=== PATIENT | male | born 1935 | race Caucasian/White ===

== ENCOUNTER → 2021-02-09 | Outpatient (CLI) | payer MEDICARE, BC ==
--- NOTE | 2021-02-09 14:58 | RAD ---
EXAM: Lumbar spine CT without contrast. HISTORY: Pain. TECHNIQUE: Computed tomographic images of the lumbar spine were obtained without contrast. Multiplana r reformatting was performed. *One or more of the following individualized dose reduction techniques were utilized for this examina tion: 1. Automated exposure control. 2. Adjustment of the mA and/or kV according to patient size. 3. Use of iterative reconstruction technique. COMPARISON: None. FINDINGS: There is lumbar scoliosis. There is grade 1 anterolisthesis of L5 on S1, measuring 4 mm. Th ere are associated pars interarticularis defects at this level. There is 3 mm retrolisthesis of L2 on L3 and 2 mm retrolisthesis of L1 on L2. There is multilevel endplate remodeling, predominantly at L2 -L3. There is associated disc space narrowing, osteophytosis and Schmorl's node formation at this lev el. There are few additional small endplate Schmorl's nodes. There is slight calcification within the disc space at T11-T12 and L5-S1. There is no suspicious osseous lesion. There is no fracture. There is partial visualization of a 11 mm nodule at the right lung base. There is a right renal parapelvic cyst. There is hyperdensity within the gallbladder likely due to a stone rather than vicarious excret ion of contrast. There is colonic diverticulosis. There is heavily calcified atherosclerotic plaque i nvolving the aorta and aortic branch vessels. There is no aneurysm. The sacroiliac joints are intact. At T11-T12, there is a left paracentral to lateral recess disc protrusion superimposed on endplate re modeling. There is minimal bilateral facet arthropathy. There is no stenosis. At T12-L1, there is mild endplate remodeling. There is no stenosis. At L1-L2, there is a disc bulge and endplate remodeling. There is mild bilateral facet arthropathy. T here is retrolisthesis. There is mild central canal stenosis. At L2-L3, there is a left foraminal to lateral disc osteophyte complex superimposed on a left lateral predominant disc bulge and endplate osteophytosis. There is retrolisthesis. There is mild right and moderate to severe left foraminal stenosis. There is mild central canal stenosis. At L3-L4, there is a posterior central disc protrusion superimposed on a disc bulge and endplate david deling. There is mild central canal stenosis. At L4-L5, there is a left extra foraminal to lateral disc protrusion superimposed on a disc bulge and endplate remodeling. There is mild stenosis involving the lateral left neural foramen with abutment of the exiting left L4 nerve root. There is mild central canal stenosis. At L5-S1, there is a disc bulge with endplate remodeling. There are bilateral pars defects with grade 1 anterolisthesis. There is no stenosis. IMPRESSION: 1. 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 This results in mild central canal stenosis at L1-L2, mild right and moderate to severe left f oraminal and mild central canal stenosis at L2-L3, mild central canal stenosis at L3-L4, and mild lat eral left neural foraminal stenosis with abutment the exiting left L4 nerve root and mild central can al stenosis at L4-L5. 2. Grade 1 anterolisthesis with pars interarticularis defects at L5-S1. There is additional mild list hesis at the aforementioned levels and there is lumbar scoliosis. 3. 11 mm right basilar pleural-based nodule. This may be due to pleural parenchymal scarring. [facility] ed chest CT can be performed for characterization. 4. Colonic diverticulosis. Electronically signed by: Yocasta Echeverria MD (02/09/2021 2:55 PM) [id number]
== END ==
LOC: CT 14:06
PROVIDERS: ATTEND Psychiatry & Neurology Neurology
DX: M43.17 Spondylolisthesis, lumbosacral region (principal); M41.86 Other forms of scoliosis, lumbar region; G82.20 Paraplegia, unspecified; R91.1 Solitary pulmonary nodule; K57.30 Diverticulosis of large intestine without perforation or abscess without bleeding
CPT/HCPCS: 72131

== ENCOUNTER 2021-05-07 08:25 | Inpatient (IN) | payer MEDICARE, BC ==
[~2021-05-07] VITALS: Ht 177.8 cm; Wt 74.0 kg
--- NOTE | 2021-05-07 09:01 | PHYS DOC ---
Past History Additional Past Medical Histor: NEMESIO'S DISEASE; PERICARDITIS Past Surgical History: Appendectomy General Adult EDM: Chief Complaint: SHORTNESS OF BREATH HPI: HPI: 85-year-old male presents with shortness of breath. The patient had vomiting Tuesday through Tuesday of this week. He has not had any vomiting last night or this morning. He has not been eating. Today, he has increased respiratory effort and feels a bit short of breath. The patient and his daughter believe this started overnight. Patient denies chest pain or diaphoresis. He is feeling more generalized weakness at this time. Denies any bleeding. He is fully vaccinated against COVID-19. No fever or chills at home. Review of Systems: Review of Systems: Constitutional: Denies fever or chills. Weakness. Eyes: Denies change in visual acuity HENT: Denies nasal congestion or sore throat Respiratory: Intermittent cough with shortness of breath Cardiovascular: Denies chest pain or edema GI: nausea, vomiting. Denies abdominal pain, bloody stools or diarrhea : Denies dysuria Musculoskeletal: Denies back pain or joint pain Integument: Denies rash Neurologic: Denies headache, focal weakness or sensory changes Endocrine: Denies polyuria or polydipsia Lymphatic: Denies swollen glands Psychiatric: Denies depression or anxiety Allergies: Allergies: Allergies Coded Allergies Type Severity Reaction Last Updated Verified No Known Drug Allergies 05/07/21 No Physical Exam: PE: Constitutional: Well developed, well nourished, no acute distress, non-toxic appearance. [] HENT: Normocephalic, atraumatic, bilateral external ears normal, oropharynx moist, no oral exudates, nose normal. [] Eyes: PERRLA, EOMI, conjunctiva normal, no discharge. [] Neck: Normal range of motion, no tenderness, supple, no stridor. [] Cardiovascular: Heart rate regular rhythm, no murmur [] Lungs & Thorax: Bilateral breath sounds clear to auscultation, 20-28 respirations a minute [] Abdomen: Bowel sounds normal, soft, no tenderness, no masses, no pulsatile masses. [] Skin: Warm, dry, no erythema, no rash. [] Back: No tenderness, no CVA tenderness. [] Extremities: No tenderness, no cyanosis, no clubbing, ROM intact, no edema. [] Neurologic: Alert and oriented X 3, normal motor function, normal sensory function, no focal deficits noted. [] Psychologic: Affect normal, judgement normal, mood normal. [] Current Patient Data: Vital Signs: Vital Signs Date Time Temp Pulse Resp B/P (MAP) Pulse Ox O2 Delivery O2 Flow Rate FiO2 05/07/21 08:42 97.4 70 24 158/60 99 Room Air EKG: EKG: Sinus rhythm rate 79, normal axis, no obvious ST elevation or depression. [] Radiology/Procedures: Radiology/Procedures: [] Impressions: EXAM: CHEST 1 VIEW History: Shortness of breath COMPARISON: None available. TECHNIQUE: Single portable radiograph of the chest FINDINGS: The cardiac silhouette is unremarkable. Mild bibasilar lung atelectasis or infiltrates. The costophrenic sulci are clear and well demarcated. Small calcified granuloma identified in the right lung base. IMPRESSION: Mild bibasilar lung atelectasis or infiltrates. Electronically signed by: Roberto Carlos Pacheco MD (05/07/2021 9:37 AM) [id number] DICTATED AND SIGNED BY: ROBERTO CARLOS PACHECO MD DATE: 05/07/21 0933 CC: AURA FRANK DO; CHICA HINKLE MD ~MTH0 0 Heart Score: C/O Chest Pain: No Risk Factors: Risk Factors: DM, Current or recent (<one month) smoker, HTN, HLP, family history of CAD, obesity. Risk Scores: Score 0 - 3: 2.5% MACE over next 6 weeks - Discharge Home Score 4 - 6: 20.3% MACE over next 6 weeks - Admit for Clinical Observation Score 7 - 10: 72.7% MACE over next 6 weeks - Early Invasive Strategies Course & Med Decision Making: Course & Med Decision Making Pertinent Labs and Imaging studies reviewed. (See chart for details) The patient's labs are unremarkable except for creatinine 1.6. I have no previous for comparison. His orthostatic evaluation was positive. We will give him a liter of normal saline. Dr. Hinkle came and saw the patient in the emergency room and would like him to be admitted. I will admit the patient to his service. The chest x-ray is suggestive of atelectasis or bilateral infiltrates. I will treat him with Rocephin and azithromycin. His rapid Covid was negative but his PCR is pending. I am suspicious this could be COVID-19 despite his vaccination. [] Dragon Disclaimer: Dragjoaquina Disclaimer: This electronic medical record was generated, in whole or in part, using a voice recognition dictation system. Departure Departure: Impression: Primary Impression: Suspected 2019 novel coronavirus infection Additional Impressions: Elevated serum creatinine Bilateral pneumonia Qualified Codes: J18.9 - Pneumonia, unspecified organism Disposition: ADMITTED INPATIENT Admitting Physician: Chica Hinkle Condition: STABLE Referrals: CHICA HINKLE MD (PCP) AURA FRANK DO May 07, 2021 09:01
[2021-05-07 09:33] LABS: BASO % 1 % (0-3); EOS # 0.3 x10^3/uL (0.0-0.7); EOS % 4 % (0-3); HEMATOCRIT 38.3 % (39.0-53.0); HEMOGLOBIN 12.9 g/dL (13.0-17.5); LYMPH # 2.3 x10^3/uL (1.0-4.8); LYMPH % 28 % (24-48); MEAN CORPUSCULAR HEMOGLOBIN 33 pg (25-35); MEAN CORPUSCULAR HGB CONC 34 g/dL (31-37); MEAN CORPUSCULAR VOLUME 99 fL (79-100); MONO # 0.7 x10^3/uL (0.0-1.1); MONO % 8 % (0-9); NEUT # 4.8 x10^3uL (1.8-7.7); NEUT % 59 % (31-73); PLATELET COUNT 267 x10^3/uL (140-400); RED BLOOD COUNT 3.89 x10^6/uL (4.30-5.70); RED CELL DISTRIBUTION WIDTH 13.3 % (11.5-14.5); WHITE BLOOD COUNT 8.1 x10^3/uL (4.0-11.0)
[2021-05-07 09:38] LABS: CREATININE 1.6 mg/dL (0.7-1.3); GFR 41.3; POTASSIUM 4.4 mmol/L (3.5-5.1)
--- NOTE | 2021-05-07 09:39 | RAD ---
EXAM: CHEST 1 VIEW History: Shortness of breath COMPARISON: None available. TECHNIQUE: Single portable radiograph of the chest FINDINGS: The cardiac silhouette is unremarkable. Mild bibasilar lung atelectasis or infiltrates. Th e costophrenic sulci are clear and well demarcated. Small calcified granuloma identified in the right lung base. IMPRESSION: Mild bibasilar lung atelectasis or infiltrates. Electronically signed by: Roberto Carlos Hayden MD (05/07/2021 9:37 AM) [id number]
[2021-05-07 09:44] LABS: ALBUMIN 3.5 g/dL (3.4-5.0); ALBUMIN/GLOBULIN RATIO 1.4 (1.0-1.7); TOTAL BILIRUBIN 0.6 mg/dL (0.2-1.0)
[2021-05-07 10:32] LABS: C REACTIVE PROTEIN < 0.5 mg/L (0-3.3)
[2021-05-07] MEDS ORDERED: IV NORMAL SALINE 1,000ML 1,000 ML IV ONE (10:45)
[2021-05-07] MEDS ORDERED: IV NORMAL SALINE 50ML 50 ML ONE (10:59)
[2021-05-07] MEDS ORDERED: cefTRIAXone SODIUM 1 GM VIAL ONE (10:59)
[2021-05-07] MEDS ORDERED: IV NORMAL SALINE 250ML 250 ML ONE (10:59)
[2021-05-07] MEDS ORDERED: AZITHROMYCIN 500 MG VIAL. IV ONE (10:59)
[2021-05-07] MEDS ORDERED: ONDANSETRON PF 4 MG/2 ML VIAL. IVP PRN (11:00)
[2021-05-07] MEDS ORDERED: AZITHROMYCIN 500 MG in IV NORMAL SALINE 250ML 250 ML IV ONE (11:00)
[2021-05-07] MEDS ORDERED: ACETAMINOPHEN 325 MG TABLET PO PRN (11:00)
[2021-05-07 13:00] LABS: BACTERIA,URINE 0 /HPF (0-FEW); BILIRUBIN,URINE NEG (NEG); CLARITY,URINE CLEAR; COLOR,URINE YELLOW; GLUCOSE,URINE NEG (NEG); NITRITE,URINE NEG (NEG); SQUAMOUS EPITHELIAL CELL,UR FEW /LPF
--- NOTE | 2021-05-07 16:07 | EKG ---
[address] [address] Test Date: 2021-05-07 Test Time: 08:44:10 Pat Name: AURORA GARNER Department: Room: Gender: M Inseam Leveler: : [id number] Requested By: AURA FRANK Order Number: [id number] Reading MD: Measurements Intervals Jacobson Rate: 79 P: VT: QRS: -23 QRSD: 92 T: 40 QT: 376 QTc: 432 Interpretive Statements ATRIAL FLUTTER LEFTWARD AXIS ST & T ABNORMALITY, CONSIDER INFERIOR ISCHEMIA OR LEFT VENTRICULAR STRAIN ABNORMAL ECG RI6.02 No previous ECG available for comparison
[2021-05-07 16:25] VITALS: BP 166/75
[2021-05-07 16:38] VITALS: BP 127/71
[2021-05-07] MEDS ORDERED: ATORVASTATIN CA80 MG PO (18:05)
[2021-05-07] MEDS ORDERED: GABA-586 PO (18:05)
--- NOTE | 2021-05-07 19:17 | HP ---
ADMIT DATE: 05/07/2021 HISTORY OF PRESENT ILLNESS: The patient has history of Arena's disease, pericarditis, came in, apparently fell out of bed. He has been having problems with generalized weakness, shortness of breath and just cannot mobilize very well overall. He is markedly diaphoretic at times, but just general weakness, coughing. Chest x-ray in the ER showed pneumonic process and was admitted for pneumonia because of his age, his generalized weakness and his inability to mobilize at home with a risk to himself. PAST MEDICAL HISTORY: Pericarditis, Arena's disease, urinary tract infections, and hyperglycemia. FAMILY HISTORY: Unremarkable. ALLERGIES: No known drug allergies. SOCIAL HISTORY: The patient has a history of smoking in the past. Denies alcohol or drug use. REVIEW OF SYSTEMS: The patient otherwise, outside of generalized weakness, has neuropathy type pain in his legs, but other than that, the patient is resting fairly comfortably. Denies chest pain per se, but does have that shortness of breath. PHYSICAL EXAMINATION: GENERAL: The patient on exam otherwise is a very pleasant gentleman, very weak appearing. VITAL SIGNS: Blood pressure 166/75, respiratory rate 20, pulse 88, afebrile. The patient otherwise 97 on room air. HEENT: Head is atraumatic, normocephalic. Eyes: PERRLA without jaundice. The mouth and throat were normal. NECK: Supple, no JVD or thyromegaly. LUNGS: Diminished throughout, poor movement of air, basically in the bases. CARDIOVASCULAR: Regular sinus rhythm, S1, S2, without murmur, rub, thrill, or extra heart sound. ABDOMEN: Soft, nontender, no rebound or guarding. Positive bowel sounds, no hepatosplenomegaly noted. EXTREMITIES: No clubbing, cyanosis, nor edema. LABORATORY DATA: Hemoglobin 12, hematocrit 38, white count 8. Sodium and potassium are 137 and 4.4. BUN 17 and creatinine 1.6, glucose 130. C-reactive protein stable. TSH normal. Total protein low at 6. BNP of 270s. SARS negative. PLAN: The patient will be admitted for further evaluation and treatment of his pneumonia, community acquired; generalized weakness. FALGUNI/REAGAN/KALYN DR: FALGUNI/jorge TID: [id number]
[2021-05-07 19:52] VITALS: BP 157/68
[2021-05-07] MEDS: GABAPENTIN 300 MG CAPSULE. PO SCH (20:25)
[2021-05-07 23:34] VITALS: BP 145/66
[2021-05-08] MEDS: GABAPENTIN 300 MG CAPSULE. PO SCH ×3 (07:45→20:17)
[2021-05-08] MEDS: AZITHROMYCIN 250 MG TABLET. PO SCH (07:45)
[2021-05-08] MEDS ORDERED: ATORVASTATIN CALCIUM 20 MG TABLET PO SCH (09:00)
[2021-05-08 10:07] VITALS: BP 132/68
[2021-05-08] MEDS: LACTOBACILLUS RHAMNOSUS GG 1 CAPSULE. PO SCH ×2 (10:33→20:17)
[2021-05-08] MEDS: rOPINIRole 0.25 MG TABLET. PO SCH (10:33)
[2021-05-08 14:49] VITALS: BP 127/70
[2021-05-08 19:10] VITALS: BP 139/73
[2021-05-08 22:49] VITALS: BP 124/67
--- NOTE | 2021-05-08 23:06 | PN ---
SUBJECTIVE: The patient in with pneumonia. He says he is feeling a little bit better. OBJECTIVE: VITAL SIGNS: Blood pressure 127/70, respiratory rate 18, pulse on the average of about 74, afebrile, 96 on room air. GENERAL: The patient is resting fairly comfortably. LUNGS: Diminished, poor movement of air. CARDIOVASCULAR: Regular sinus rhythm. ABDOMEN: Soft, nontender, no rebound or guarding. Positive bowel sounds. No hepatosplenomegaly was noted. EXTREMITIES: No clubbing, cyanosis, nor edema. NEUROLOGIC: The patient is alert and oriented. Continue with PT, OT and make thorough evaluation on him and make further evaluation from the physical and occupational therapist. IMPRESSION: Pneumonia, generalized weakness, and gait disturbance. PLAN: We will go ahead and continue with IV antibiotic therapy and physical and occupational therapy and make further adjustments accordingly. Also, pneumonia, type 2 diabetes, and chronic kidney disease stage IIIA. LOAN DR: Silvia TID: [id number]
[2021-05-09 05:38] VITALS: BP 151/71
[2021-05-09 05:56] LABS: BASO % 0 % (0-3); EOS # 0.8 x10^3/uL (0.0-0.7); EOS % 8 % (0-3); HEMATOCRIT 35.6 % (39.0-53.0); HEMOGLOBIN 12.2 g/dL (13.0-17.5); LYMPH # 3.9 x10^3/uL (1.0-4.8); LYMPH % 40 % (24-48); MEAN CORPUSCULAR HEMOGLOBIN 34 pg (25-35); MEAN CORPUSCULAR HGB CONC 34 g/dL (31-37); MEAN CORPUSCULAR VOLUME 99 fL (79-100); MONO # 0.8 x10^3/uL (0.0-1.1); MONO % 8 % (0-9); NEUT # 4.3 x10^3uL (1.8-7.7); NEUT % 44 % (31-73); PLATELET COUNT 256 x10^3/uL (140-400); RED CELL DISTRIBUTION WIDTH 13.2 % (11.5-14.5); WHITE BLOOD COUNT 9.7 x10^3/uL (4.0-11.0)
[2021-05-09 05:59] LABS: CALCIUM 8.2 mg/dL (8.5-10.1); CREATININE 1.6 mg/dL (0.7-1.3); GFR 41.3; POTASSIUM 4.3 mmol/L (3.5-5.1)
[2021-05-09] MEDS: LACTOBACILLUS RHAMNOSUS GG 1 CAPSULE. PO SCH (08:22)
[2021-05-09] MEDS: AZITHROMYCIN 250 MG TABLET. PO SCH (08:22)
[2021-05-09] MEDS: GABAPENTIN 300 MG CAPSULE. PO SCH (08:23)
[2021-05-09] MEDS: rOPINIRole 0.25 MG TABLET. PO SCH (08:23)
[2021-05-09] MEDS ORDERED: AZIT250T6 PO (08:44)
[2021-05-09] MEDS ORDERED: ROPI0.254 PO (08:44)
[2021-05-09] MEDS ORDERED: ATORVASTATIN CALCIUM 20 MG TABLET PO SCH (09:00)
--- NOTE | 2021-05-14 15:01 | DS ---
DATE OF DISCHARGE: 05/14/2021 HOSPITAL COURSE: An 85-year-old gentleman with a history of [place]'s disease, pericarditis, came in, apparently fell out of bed. The patient has been having problems with generalized weakness, markedly diaphoretic at times, just general weakness, unable to get his balance. The patient was noted in the Emergency Room to have a pneumonia. He was admitted with IV antibiotic therapy, aggressive pulmonary toilet. Hemoglobin slightly low at 12.2. Chemistries did show a slightly low iron of 61. Sugar was good. BUN and creatinine 20 and 1.6. The patient continued to make good progress during the rest of his hospitalization. He was taken off his Lipitor. SARS was negative. He made good progress and was discharged home. IMPRESSION: Pneumonia, unknown etiology, community-acquired, generalized weakness, lethargy, dyspnea, chronic kidney disease stage IIIB. The patient will be discharged. See MRAD and have him follow up as an outpatient and make further evaluation on him as indicated. CARLA DR: Silvia TID: [id number]
== END 2021-05-09 12:08 | disposition home or self-care (01) | DRG 178 ==
LOC: ER 08:28 → 1 SOUTH 10:48
PROVIDERS: ADMIT Family Medicine; ATTEND Family Medicine
DX: J15.6 Pneumonia due to other Gram-negative bacteria (principal); J98.11 Atelectasis; J15.9 Unspecified bacterial pneumonia; L11.1 Transient acantholytic dermatosis [Grover]; E11.22 Type 2 diabetes mellitus with diabetic chronic kidney disease; Z20.822 Contact with and (suspected) exposure to COVID-19; Z87.891 Personal history of nicotine dependence; Z90.49 Acquired absence of other specified parts of digestive tract; N18.32 Chronic kidney disease, stage 3b
CPT/HCPCS: 36415; 71045; 80048; 80053; 81001; 83540; 83550; 83880; 84443; 84484; 85025; 86140; 87426; 93005; 96361; 96365; 96375; J0456; J0696; J2405; J7050; U0003; 97530; 99285-25; J7030

== ENCOUNTER 2021-05-16 09:41 | Emergency (ER) | payer MEDICARE, BC ==
[~2021-05-16] VITALS: Ht 177.8 cm; Wt 78.5 kg
[~2021-05-16 09:41] MED LIST: ATORVASTATIN CA80 MG PO; AZIT250T6 PO; GABA-586 PO; ROPI0.254 PO
--- NOTE | 2021-05-16 10:03 | PHYS DOC ---
Past History Additional Past Medical Histor: JOSÉ MANUEL'S DISEASE; PERICARDITIS Past Surgical History: Appendectomy Alcohol Use: None General Adult EDM: Chief Complaint: MECHANICAL FALL HPI: HPI: 85 yo M PMH josé manuel's disease, pericarditis with discharge from hospital 2 days ago for CAP, presents to the ed with c/o headache and left wrist pain after patient actually fell down 13 steps at home, patient drove himself here. Patient denies any loss of consciousness. Is not on anticoagulants. Was not under the influence of any alcohol or drugs. Cannot recall his last tetanus. Denies any preceding symptoms including dizziness, lightheadedness, faintness, near syncope, chest pain, dyspnea, hemoptysis, leg swelling or neurologic deficits. Review of Systems: Review of Systems: Constitutional: Denies fever or chills Eyes: Denies change in visual acuity HENT: Denies nasal congestion or sore throat Respiratory: Denies cough or shortness of breath Cardiovascular: Denies chest pain or edema GI: Denies abdominal pain, nausea, vomiting, bloody stools or diarrhea : Denies saddle anesthesia or incontinence Musculoskeletal: Denies back pain or joint pain Integument: Denies rash or diaphoresis Neurologic: Denies neck pain, focal weakness or sensory changes Endocrine: Denies polyuria or polydipsia Lymphatic: Denies swollen glands Psychiatric: Denies depression or anxiety Allergies: Allergies: Allergies Coded Allergies Type Severity Reaction Last Updated Verified No Known Drug Allergies 05/07/21 No Physical Exam: PE: Constitutional: Well developed, well nourished, no acute distress, non-toxic appearance. HENT: Large superficial skin avulsion over top of the head approximately 6 x 6 cm, no septal hematoma, no bleeding oral mucous membranes Eyes: PERRLA, EOMI, conjunctiva normal, no discharge. Neck: Normal range of motion, supple, no midline neck pain Cardiovascular: S1/2 present, regular rhythm Lungs & Thorax: Speaking in full sentences, bilateral equal chest rise, no tachypnea or increased work of breathing Abdomen: soft, no tenderness, Skin: Warm, dry, Back: No midline spinal step-offs or tenderness, reports tenderness palpation over left CVA Extremities: Equal radial pulses, left distal wrist deformity, small abrasion over right second MCP joint Neurologic: Alert and oriented X 3, normal motor function, normal sensory function, no focal deficits noted, cautious but steady gait Psychologic: Affect normal, judgement normal, mood normal. [] Current Patient Data: Vital Signs: Vital Signs Date Time Temp Pulse Resp B/P (MAP) Pulse Ox O2 Delivery O2 Flow Rate FiO2 05/16/21 09:41 97.7 67 16 140/66 (90) 97 Room Air EKG: EKG: [] Radiology/Procedures: Radiology/Procedures: IMAGING REPORT Signed PATIENT: AURORA GARNER ACCOUNT: [id number] : 1935 LOCATION: ER AGE: 85 SEX: M EXAM STATUS: REG ER ORD. PHYSICIAN: ANGIE ARREOLA DO REASON: fall down 13 steps PROCEDURE: CT HEAD AND CERVICAL SPINE WO CT MAXILLOFACIAL WITHOUT CONTRAST, CT HEAD AND C-SPINE WO dated 05/16/2021 10:47 AM Indication:Reason: fall down 13 steps / Spl. Instructions: / History: Comparison: No comparison is available. Technique: Noncontrast images were performed. Sagittal and coronal reconstructions of the facial bones and cervical spine were obtained. One or more of the following individualized dose reduction techniques were utilized for this examination: 1. Automated exposure control 2. Adjustment of the mA and/or kV according to patient size 3. Use of iterative reconstruction technique Findings: CT head: There is no apparent intracranial hemorrhage or abnormal extra-axial fluid collection. Low-attenuation in the cerebral white matter likely relates to chronic small vessel ischemic injury. No other area of abnormal density is seen. The ventricles and basilar cisterns are normally positioned. Bone windows show no apparent fracture of the skull or abnormal mastoid opacification. CT FACIAL BONES: No facial fracture is seen. The orbital floors appear intact. The nasal septum is deviated some to the right. No fluid is seen in the sinuses. CT cervical spine: Alignment is normal. There is no apparent loss of vertebral body height or prevertebral soft tissue swelling. No fracture line is seen. There is prominent disc narrowing at C3-4, C4-5, C5-6 and C6-7. Evaluation of the soft tissue components of the canal is limited without intrathecal contrast. No destructive process is seen. IMPRESSION: CT head: No acute abnormality. CT FACIAL BONES: No evidence of fracture or other acute abnormality. CT cervical spine: Degenerative changes. No acute abnormality. Electronically signed by: Kirk Brasher Jr., MD (05/16/2021 11:42 AM) [id number] DICTATED AND SIGNED BY: KIRK BRASHER Jr, MD DATE: 05/16/21 1133 CC: CHICA HINKLE MD; ANGIE ARREOLA DO ~MTH0 0 IMAGING REPORT Signed PATIENT: AURORA GARNER ACCOUNT: [id number] : 1935 LOCATION: ER AGE: 85 SEX: M EXAM STATUS: REG ER ORD. PHYSICIAN: ANGIE ARREOLA DO REASON: fall down 13 steps PROCEDURE: CT CHEST ABD PELVIS W/CONTRAST CT CHEST+ABD+PELVIS W dated 05/16/2021 10:37 AM Indication:Reason: fall down 13 steps / Spl. Instructions: omni 300 50ml iv only, oked by radiologist, kgm 1048 / History: Comparison: No comparison is available. Technique: CT images were performed through the chest abdomen and pelvis using an infusion of 50 mL Omnipaque 300. One or more of the following individualized dose reduction techniques were utilized for this examination: 1. Automated exposure control 2. Adjustment of the mA and/or kV according to patient size 3. Use of iterative reconstruction technique Findings: CT chest: There is some dependent density in the lungs. This is probably mostly atelectasis, although mild fibrosis is possible. There is no evidence of significant lung contusion. No pneumothorax or pleural effusion is seen. There is suggestion of a nodule at the right lung base just above the diaphragm. This measures about 10 mm across. There may have mildly irregular margins, although the surrounding density makes evaluation difficult. The central airways show no obstruction. The thoracic aorta is normal in caliber without evidence of injury. No mediastinal fluid or hemorrhage is seen. Bone windows show no fracture. CT abdomen and pelvis: The liver and spleen are homogeneous in density and normal in configuration. There is no evidence of laceration or contusion. There is dependent density in the gallbladder consistent with sludge or small stones. Both kidneys enhance with contrast. There is no evidence of parenchymal injury. No mass or obstruction is seen. There is a parapelvic cyst on the right. The adrenal glands and pancreas show no abnormality. No free fluid is seen in the abdomen. There is a small fat-containing umbilical hernia. Images through the pelvis show no apparent abnormality of the bladder. The distal ureters are mildly dilated without apparent cause for obstruction. No free fluid is seen in the pelvis. Bone windows show no acute abnormality. IMPRESSION: Indeterminate right lower lobe lung nodule. Follow-up CT in 3 months would be useful. No acute traumatic abnormality in the chest, abdomen or pelvis. Electronically signed by: Kirk Brasher Jr., MD (05/16/2021 11:59 AM) [id number] DICTATED AND SIGNED BY: KIRK BRASHER Jr, MD DATE: 05/16/21 1144 CC: CHICA HINKLE MD; ANGIE ARREOLA DO ~MTH0 0 IMAGING REPORT Signed PATIENT: AURORA GARNER ACCOUNT: [id number] : 1935 LOCATION: ER AGE: 85 SEX: M EXAM STATUS: REG ER ORD. PHYSICIAN: ANGIE ARREOLA DO REASON: left wrist pain, right 2nd digit pain PROCEDURE: HAND BILAT 3V XR WRIST 3V, XR HAND 3 VIEWS Clinical indications: Reason: left wrist pain, right 2nd digit pain Three-view right wrist study: No acute fracture or dislocation or osteolytic process is evident. Scaphoid bone is intact. 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 Three-view right hand study: No acute fracture or dislocation or lytic process is evident. Degenerative osteoarthritis of the interphalangeal joints and the first metacarpal phalangeal joint is evident. Three-view left wrist study: Scaphoid bone is intact. There is an impacted comminuted fracture of the distal left radial metaphysis and epiphysis. There is intra-articular extension. There is distraction of the articular surface of 2 mm. There is a positive ulnar variance. There is anterior angulation of the apex of the fracture with posterior displacement of the radial epiphysis with respect to the metaphysis resulting in dorsal displacement of the radial carpal articulation and dorsal angulation of radial carpal articulation. 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 No lytic process is seen. Three-view left hand study: Separate bone fragment of the lateral proximal epiphysis of the first proximal phalanx is seen. 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 There is a nondisplaced acute-appearing fracture of the lateral proximal corner of the first distal phalanx. No dislocation or lytic process is apparent. IMPRESSION: Acute fracture of the distal left radius and the left first distal phalanx. Electronically signed by: Tracy Poole MD (05/16/2021 12:17 PM) [id number] DICTATED AND SIGNED BY: TRACY POOLE MD DATE: 05/16/21 1203 CC: CHICA HINKLE MD; ANGIE ARREOLA DO ~MTH0 0 Patient informed of findings. Splint applied by RN. The splint is checked by RN, with appropriate stabilization of the injury. Distal capillary refill normal and distal neurologic function intact Heart Score: C/O Chest Pain: No Risk Factors: Risk Factors: DM, Current or recent (<one month) smoker, HTN, HLP, family history of CAD, obesity. Risk Scores: Score 0 - 3: 2.5% MACE over next 6 weeks - Discharge Home Score 4 - 6: 20.3% MACE over next 6 weeks - Admit for Clinical Observation Score 7 - 10: 72.7% MACE over next 6 weeks - Early Invasive Strategies Course & Med Decision Making: Course & Med Decision Making Pertinent Labs and Imaging studies reviewed. (See chart for details) Concern for closed left distal radius fracture, left distal phalanx fracture, scalp skin avulsion, renal insufficiency and macrocytic anemia. Tetanus was updated in emergency department. Patient with steady gait. Will discharge home with strict ED return precautions were given for repeat head injury, confusion, nausea, vomiting or neurologic deficits. Encouraged urgent outpatient follow-up with PMD in 1 to 2 days for reevaluation. Life-threatening processes were considered but are low suspicion at this time, given history, physical exam and ED workup. Pt was educated on all prescription medications and adverse effects. All patient's questions were answered and pt was stable at time of discharge. Life/limb-threatening differential includes but is not limited to, intracranial hemorrhage, diffuse axonal injury, spinal cord syndrome, unstable cervical fracture or SCIWORA, fractures or joint dislocations, neurovascular injuries, organ injury or laceration, pneumothorax, pneumoperitoneum, pericardial tamponad e, unstable pelvic fracture, compartment syndrome, flail chest or respiratory distress, burn injury or asphyxiation I have spoken with the patient and/or caregivers. I explained the patient's condition, diagnoses and treatment plan based on the information available to me at this time. I have answered the patient and/or caregiver's questions and addressed any concerns. The patient and/or caregivers have a good understanding of patient's diagnosis, condition and treatment plan as can be expected at this point. Vital signs have been stable. Patient's condition is stable and appropriate for discharge from the emergency department. Patient will pursue further outpatient evaluation with primary care physician or other designated or consulting physician as outlined in the discharge instructions. The patient and/or caregivers are agreeable to this plan of care and follow-up instructions have been explained in detail. The patient and/or caregivers have received these instructions in written form and have expressed an understanding of the discharge instructions. The patient and/or caregivers are aware that any significant change of condition or worsening of symptoms should prompt immediate return to this or the closest emergency department or call to 911. Martha Disclaimer: Martha Disclaimer: This electronic medical record was generated, in whole or in part, using a voice recognition dictation system. Departure Departure: Impression: Primary Impression: Avulsion of scalp Additional Impressions: Need for Tdap vaccination Left radial fracture CKD (chronic kidney disease) Fracture of distal phalanx of left thumb Disposition: 01 HOME / SELF CARE / HOMELESS Condition: STABLE Referrals: CHICA HINKLE MD (PCP) Follow up with your pcp in 1-2 days or [facility] [phone] OR [facility] Hinkle [phone] Patient Instructions: Cast or Splint Care, Fall Prevention and Home Safety, Finger Fracture (Phalangeal)-SportsMed, Radius Fracture with Rehab-[facility], VIS, Tetanus, Diphtheria (Td); Tetanus, Diphtheria, Pertussis (Tdap) - CDC Additional Instructions: FOLLOW UP WITH ORTHOPEDICS: for definitive management of left distal radius fracture [facility] [address] [facility], [address] [address] EMERGENCY DEPARTMENT GENERAL DISCHARGE INSTRUCTIONS Thank you for coming to [facility] (ED) today and trusting us with you care. We trust that you had a positivie experience in our Emergency Department. If you wish to speak to the department management, you may call the director at [phone]. YOUR FOLLOW UP INSTRUCTIONS ARE FOLLOWS: 1. Do you have a private Doctor? If you do not have a private doctor, please ask for a resource list of physicians or clinics that may be able to assist you with follow up care. 2. The Emergency Physician has interpreted your x-rays. The X-Ray specialist w ill also review them. If there is a change in the findings, you will be notified in 48 hours when at all possible. 3. A lab test or culture has been done, your results will be reviewed and you will be notified if you need a change in treatment. ADDITIONAL INSTRUCTIONS AND INFORMATION: 1. Your care today has been supervised by a physician who is specially trained in emergency care. Many problems require more than one evaluation for a complete diagnosis and treatment. We recommend that you schedule your follow up appointment as recommended to ensure complete treatment of you illness or injury. If you are unable to obtain follow up care and continue to have a problem, or if your condition worsens, we recommend that you return to the ED. 2. We are not able to safely determine your condition over the phone nor are we able to give sound medical advice over the phone. For these safety reasons, if you call for medical advice we will ask you to come to the ED for further evaluation. 3. If you have any questions regarding these discharge instructions please call the ED at [phone]. SAFETY INFORMATION: In the interest of safety, wellness, and injury prevention; we encourage you to wear your sealbelt, if you smoke; quite smoking, and we encourage family to use a protective helmet for bicycling and other sporting events that present an increased risk for head injury. IF YOUR SYMPTOMS WORSEN OR NEW SYMPTOMS DEVELOP, OR YOU HAVE CONCERNS ABOUT YOUR CONDITION; OR IF YOUR CONDITION WORSENS WHILE YOU ARE WAITING FOR YOUR FOLLOW UP APPOINTMENT; EITHER CONTACT YOUR PRIMARY CARE DOCTOR, THE PHYSICIAN WHOSE NAME AND NUMBER YOU WERE GIVEN, OR RETURN TO THE ED IMMEDIATELY. Scripts Neomycn/Baci Zn/Pmyx Bs/Pramox (Triple Antibioti-Pain Rlf Oint) 28 Gm Oint...g. 28 GM TP TID PRN for PAIN, #1 MISC Prov: ANGIE ARREOLA DO 05/16/21 ANGIE ARREOLA DO May 16, 2021 10:03
[2021-05-16] MEDS ORDERED: ACETAMINOPHEN 500 MG TABLET PO ONE (10:15)
[2021-05-16] MEDS ORDERED: IOHEXOL 300 MG/ML 75 ML VIAL. IV ONE (10:15)
[2021-05-16] MEDS ORDERED: DIPH,PERTUSS(ACELL),TET VAC/PF 0.5 ML SYRINGE. VAX IM ONE (10:15)
[2021-05-16 10:30] LABS: BASO % 0 % (0-3); EOS # 0.4 x10^3/uL (0.0-0.7); EOS % 4 % (0-3); HEMATOCRIT 35.5 % (39.0-53.0); HEMOGLOBIN 11.9 g/dL (13.0-17.5); LYMPH % 18 % (24-48); MEAN CORPUSCULAR HEMOGLOBIN 33 pg (25-35); MEAN CORPUSCULAR HGB CONC 34 g/dL (31-37); MEAN CORPUSCULAR VOLUME 100 fL (79-100); MONO # 0.5 x10^3/uL (0.0-1.1); MONO % 5 % (0-9); NEUT # 8.3 x10^3uL (1.8-7.7); NEUT % 74 % (31-73); PLATELET COUNT 256 x10^3/uL (140-400); RED BLOOD COUNT 3.57 x10^6/uL (4.30-5.70); RED CELL DISTRIBUTION WIDTH 13.4 % (11.5-14.5); WHITE BLOOD COUNT 11.2 x10^3/uL (4.0-11.0)
[2021-05-16 10:34] LABS: CALCIUM 8.8 mg/dL (8.5-10.1); CREATININE 1.6 mg/dL (0.7-1.3); GFR 41.3; POTASSIUM 4.1 mmol/L (3.5-5.1)
[2021-05-16 10:36] LABS: ALBUMIN 3.3 g/dL (3.4-5.0); ALBUMIN/GLOBULIN RATIO 1.4 (1.0-1.7); TOTAL BILIRUBIN 0.4 mg/dL (0.2-1.0); TOTAL PROTEIN 5.6 g/dL (6.4-8.2)
[2021-05-16] MEDS ORDERED: NEOMY/BACITR/POLYMYXIN OINT PACKET. TP ONE (10:45)
--- NOTE | 2021-05-16 11:45 | RAD ---
CT MAXILLOFACIAL WITHOUT CONTRAST, CT HEAD AND C-SPINE WO dated 05/16/2021 10:47 AM Indication:Reason: fall down 13 steps / Spl. Instructions: / History: Comparison: No comparison is available. Technique: Noncontrast images were performed. Sagittal and coronal reconstructions of the facial bone s and cervical spine were obtained. One or more of the following individualized dose reduction techniques were utilized for this examinat ion: 1. Automated exposure control 2. Adjustment of the mA and/or kV according to patient size 3. Use of iterative reconstruction technique Findings: CT head: There is no apparent intracranial hemorrhage or abnormal extra-axial fluid collection. Low-a ttenuation in the cerebral white matter likely relates to chronic small vessel ischemic injury. No ot her area of abnormal density is seen. The ventricles and basilar cisterns are normally positioned. Arben ne windows show no apparent fracture of the skull or abnormal mastoid opacification. CT FACIAL BONES: No facial fracture is seen. The orbital floors appear intact. The nasal septum is de viated some to the right. No fluid is seen in the sinuses. CT cervical spine: Alignment is normal. There is no apparent loss of vertebral body height or prevert ebral soft tissue swelling. No fracture line is seen. There is prominent disc narrowing at C3-4, C4-5 , C5-6 and C6-7. Evaluation of the soft tissue components of the canal is limited without intrathecal contrast. No destructive process is seen. IMPRESSION: CT head: No acute abnormality. CT FACIAL BONES: No evidence of fracture or other acute abnormality. CT cervical spine: Degenerative changes. No acute abnormality. Electronically signed by: Andrea Brasher Jr., MD (05/16/2021 11:42 AM) [id number]
[2021-05-16 11:54] VITALS: BP 160/80
--- NOTE | 2021-05-16 12:01 | RAD ---
CT CHEST+ABD+PELVIS W dated 05/16/2021 10:37 AM Indication:Reason: fall down 13 steps / Spl. Instructions: omni 300 50ml iv only, oked by radiologist , kgcecilia 1048 / History: Comparison: No comparison is available. Technique: CT images were performed through the chest abdomen and pelvis using an infusion of 50 mL O mnipaque 300. One or more of the following individualized dose reduction techniques were utilized for this examinat ion: 1. Automated exposure control 2. Adjustment of the mA and/or kV according to patient size 3. Use of iterative reconstruction technique Findings: CT chest: There is some dependent density in the lungs. This is probably mostly atelectasis, although mild fibrosis is possible. There is no evidence of significant lung contusion. No pneumothorax or pl eural effusion is seen. There is suggestion of a nodule at the right lung base just above the diaphra gm. This measures about 10 mm across. There may have mildly irregular margins, although the surroundi ng density makes evaluation difficult. The central airways show no obstruction. The thoracic aorta is normal in caliber without evidence of injury. No mediastinal fluid or hemorrhage is seen. Bone windo ws show no fracture. CT abdomen and pelvis: The liver and spleen are homogeneous in density and normal in configuration. T here is no evidence of laceration or contusion. There is dependent density in the gallbladder consist ent with sludge or small stones. Both kidneys enhance with contrast. There is no evidence of parenchy mal injury. No mass or obstruction is seen. There is a parapelvic cyst on the right. The adrenal glan ds and pancreas show no abnormality. No free fluid is seen in the abdomen. There is a small fat-conta ining umbilical hernia. Images through the pelvis show no apparent abnormality of the bladder. The distal ureters are mildly dilated without apparent cause for obstruction. No free fluid is seen in the pelvis. Bone windows erik w no acute abnormality. IMPRESSION: Indeterminate right lower lobe lung nodule. Follow-up CT in 3 months would be useful. No acute traumatic abnormality in the chest, abdomen or pelvis. Electronically signed by: Andrea Brasher Jr., MD (05/16/2021 11:59 AM) [id number]
--- NOTE | 2021-05-16 12:20 | RAD ---
XR WRIST 3V, XR HAND 3 VIEWS Clinical indications: Reason: left wrist pain, right 2nd digit pain Three-view right wrist study: No acute fracture or dislocation or osteolytic process is evident. Scap hoid bone is intact. There is severe primary degenerative osteoarthritis of the first carpal metacarp al joint. Three-view right hand study: No acute fracture or dislocation or lytic process is evident. Degenerati ve osteoarthritis of the interphalangeal joints and the first metacarpal phalangeal joint is evident. Three-view left wrist study: Scaphoid bone is intact. There is an impacted comminuted fracture of the distal left radial metaphysis and epiphysis. There is intra-articular extension. There is distractio n of the articular surface of 2 mm. There is a positive ulnar variance. There is anterior angulation of the apex of the fracture with posterior displacement of the radial epiphysis with respect to the m etaphysis resulting in dorsal displacement of the radial carpal articulation and dorsal angulation of radial carpal articulation. 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 No lytic process is seen. Three-view left hand study: Separate bone fragment of the lateral proximal epiphysis of the first pro ximal phalanx is seen. The edges appear sclerotic and therefore, this represents an old nonunited fra cture. There is a nondisplaced acute-appearing fracture of the lateral proximal corner of the first d istal phalanx. No dislocation or lytic process is apparent. IMPRESSION: Acute fracture of the distal left radius and the left first distal phalanx. Electronically signed by: Marquis Poole MD (05/16/2021 12:17 PM) [id number]
[2021-05-16] MEDS ORDERED: NEOM28OI48 TP (12:51)
--- NOTE | 2021-05-16 13:45 | RAD ---
CT STUDY OF THE THORACIC SPINE WITHOUT CONTRAST CT STUDY OF THE LUMBAR SPINE WITHOUT CONTRAST Clinical indications: Fell down 13 steps. Back pain. TECHNIQUE: Noncontrast helical CT scanning of the thoracic and lumbar spine was performed. Multiplana r 2-D reconstructions were generated. PQRS compliance Statement One or more of the following individualized dose reduction techniques were utilized for this study: 1. Automated exposure control 2. Adjustment of the mA and/or kV according to patient size 3. Use of iterative reconstruction technique CT THORACIC SPINE: There is a mild compression deformity of the superior endplate of T5 of indetermin ate age. No other fracture or discitis or lytic process is evident. CT LUMBAR SPINE: No compression fracture or discitis or lytic process is evident. The transverse proc esses appear intact. There are grade 1 anterolisthesis of L5-S1 secondary to bilateral spondylolysis of L5. There is degenerative disc space narrowing and endplate spurring at L2-3. Mild spinal canal st enosis is seen at this level and at L3-4 and L4-5. Chest and abdomen and pelvis CT was reported earlier. IMPRESSION: Mild compression deformity of the superior endplate of T5 of indeterminate age. Clinical correlation is recommended. Otherwise no other fracture is evident. 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 Electronically signed by: Marquis Poole MD (05/16/2021 1:42 PM) [id number]
[2021-05-17] MEDS ORDERED: DOCU-109 PO (07:45)
[2021-05-25] MEDS ORDERED: MIDO5TAB4 PO (13:20)
[2021-05-25] MEDS ORDERED: AMLO-186 PO (13:20)
[2021-05-25] MEDS ORDERED: CALC200T23 PO (13:20)
== END 2021-05-16 13:28 | disposition home or self-care (01) ==
LOC: ER 09:41
DX: S62.522A Displaced fracture of distal phalanx of left thumb, initial encounter for closed fracture (principal); S08.0XXA Avulsion of scalp, initial encounter; S52.502A Unspecified fracture of the lower end of left radius, initial encounter for closed fracture; N18.9 Chronic kidney disease, unspecified; Z90.89 Acquired absence of other organs; W10.8XXA Fall (on) (from) other stairs and steps, initial encounter; Y93.89 Activity, other specified; Y92.89 Other specified places as the place of occurrence of the external cause; Y99.8 Other external cause status
CPT/HCPCS: 29125; 36415; 70450; 70486; 71260; 72125; 73110; 73130; 74177; 76376; 80053; 85025; 90471; 90715; 99285; Q9967

== ENCOUNTER 2021-05-17 05:08 | Emergency (ER) | payer MEDICARE, BC ==
[~2021-05-17] VITALS: Ht 177.8 cm; Wt 78.5 kg
[~2021-05-17 05:08] MED LIST changes: +NEOM28OI48 TP
[2021-05-17 05:25] VITALS: BP 152/50
--- NOTE | 2021-05-17 06:28 | PHYS DOC ---
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 Denies any repeat injury. No fall or head injury. Daughter is present in ED, (patient consents to his/her/their knowledge and involvement in pts' medical care), and has a bottle of 60 tablets of [place], 5/325 mg. Patient took 1 last night with minimal relief. Review of Systems: Review of Systems: Constitutional: Denies fever or chills Eyes: Denies change in visual acuity HENT: Denies nasal congestion or sore throat Respiratory: Denies cough or shortness of breath Cardiovascular: Denies chest pain or edema GI: Denies nausea or vomiting,bloody stools or diarrhea Musculoskeletal: Denies midline back pain or flank pain Integument: Denies rash or diaphoresis Neurologic: Denies headache, focal weakness or sensory changes Endocrine: Denies polyuria or polydipsia Lymphatic: Denies swollen glands Psychiatric: Denies depression or anxiety Current Medications: Current Meds: Current Medications Medications (Trade) Dose Ordered Sig/Paco Start Time Stop Time Status Last Admin Dose Admin Acetaminophen/ Hydrocodone Bitart (Lortab 7.5/325) 1 tab 1X ONCE 05/17/21 06:30 05/17/21 06:31 05/17/21 06:18 1 TAB Bupivacaine HCl (Sensorcaine Mpf 0.5%) 10 ml 1X ONCE 05/17/21 06:30 05/17/21 06:31 05/17/21 06:18 10 ML Allergies: Allergies: Allergies Coded Allergies Type Severity Reaction Last Updated Verified No Known Drug Allergies 05/07/21 No Physical Exam: PE: Constitutional: Well developed, well nourished, no acute distress, non-toxic appearance. HENT: Normocephalic, atraumatic, Eyes: EOMI, conjunctiva normal, no discharge. Neck: Normal range of motion, supple, Cardiovascular: S1/2 present, regular rhythm Lungs & Thorax: Speaking in full sentences, bilateral equal chest rise, no tachypnea or increased work of breathing Abdomen: soft, no tenderness, Skin: Warm, dry, no erythema, no rash. [] Back: No midline spinal step-offs or tenderness, no CVA tenderness. [] Extremities: bruising to left thumb, splint removed with significant pain relief, cap refill< 1 second, no cyanosis, median/radial/ulnar nerve sensory distribution intact, equal radial pulses bilaterally Neurologic: Alert and oriented X 3, normal motor function, normal sensory function, no focal deficits noted. [] Psychologic: Affect normal, judgement normal, mood normal. [] EKG: EKG: [] Radiology/Procedures: Radiology/Procedures: Patient and daughter informed of findings. Splint applied by RN. The splint is checked by self, with appropriate stabilization of the injury. Distal capillary refill normal and distal neurologic function intact [] Heart Score: C/O Chest Pain: No Risk Factors: Risk Factors: DM, Current or recent (<one month) smoker, HTN, HLP, family history of CAD, obesity. Risk Scores: Score 0 - 3: 2.5% MACE over next 6 weeks - Discharge Home Score 4 - 6: 20.3% MACE over next 6 weeks - Admit for Clinical Observation Score 7 - 10: 72.7% MACE over next 6 weeks - Early Invasive Strategies Course & Med Decision Making: Course & Med Decision Making Pertinent Labs and Imaging studies reviewed. (See chart for details) Concern for uncontrolled pain management of left distal wrist fracture, alignment improved with splinting. I do suspect splint might have been too tight around patient's thumb -will redo thumb spica splint and loosely wrap. Daughter will observe patient for the next few days. Patient was given very specific surgeons regarding [place] use and can take in addition with ibuprofen. Will discharge home with strict ED return precautions were given for severe pain, neurologic deficits or repeat injury. Encouraged urgent outpatient follow- up with PMD and Ortho on Tuesday. Life-threatening processes were considered but are low suspicion at this time, given history, physical exam and ED workup. Pt was educated on all prescription medications and adverse effects. All patient's questions were answered and pt was stable at time of discharge. Life/limb-threatening differential includes but is not limited to, trauma (fracture, dislocation, laceration, compartment syndrome, tendon or ligament injury), neurovascular injury or deficitcva/tia, infection (osteomyelitis, abscess, cellulitis, septic arthritis, necrotizing fasciitis), deep vein thrombosis, renal/cardiac/liver disease, medication adverse effect, lymphedema/anasarca, vascular insufficiency or malignancy, I have spoken with the patient and/or caregivers. I explained the patient's condition, diagnoses and treatment plan based on the information available to me at this time. I have answered the patient and/or caregiver's questions and addressed any concerns. The patient and/or caregivers have a good understanding of patient's diagnosis, condition and treatment plan as can be expected at this point. Vital signs have been stable. Patient's condition is stable and appropriate for discharge from the emergency department. Patient will pursue further outpatient evaluation with primary care physician or other designated or consulting physician as outlined in the discharge instr uctions. The patient and/or caregivers are agreeable to this plan of care and follow-up instructions have been explained in detail. The patient and/or caregivers have received these instructions in written form and have expressed an understanding of the discharge instructions. The patient and/or caregivers are aware that any significant change of condition or worsening of symptoms should prompt immediate return to this or the closest emergency department or call to 911. [employer] Disclaimer: [email or web address] Disclaimer: This electronic medical record was generated, in whole or in part, using a voice recognition dictation system. Departure Departure: Impression: Primary Impression: Encounter for pain management Additional Impression: Distal radius fracture, left Disposition: 01 HOME / SELF CARE / HOMELESS Condition: STABLE Referrals: CHICA HINKLE MD (PCP) Patient Instructions: Cast or Splint Care, RICE - Routine Care for Injuries Additional Instructions: YOU CAN TAKE NORCO 5/325 MG, 1-1.5 TABLETS EVERY 6 HOURS NEEDED FOR PAIN IN ADDITION TO MOTRIN 400MG EVERY 6 HOURS WITH FOOD Scripts Docusate Sodium (COLACE) 100 Mg Capsule 1 CAP PO BID for CONSTIPATION for 7 Days, #14 CAP 0 Refills Prov: ANGIE ARREOLA DO 05/17/21 ANGIE ARREOLA DO May 17, 2021 06:28
[2021-05-17] MEDS ORDERED: BUPIVACAINE MPF 0.5% 30 ML VIAL. IJ ONE (06:30)
[2021-05-17] MEDS ORDERED: HYDROcodone/APAP 7.5/325MG 1 TAB TABLET PO ONE (06:30)
--- NOTE | 2021-05-17 07:15 | RAD ---
XR FOREARM_LEFT 2 VIEWS, XR LT WRIST 3VIEWS, XR HAND_LEFT 3 VIEWS dated 05/17/2021 6:28 AM. History: Reason: pain / Spl. Instructions: / History: Comparison: Study of the previous day. Findings: Left wrist 3 views: Views of the left wrist again show the impacted comminuted fracture of the distal radius with involvement of the distal articular surface. There appears to be slightly less dorsal an gulation of the distal articular surface compared to the prior study. Degenerative changes are again seen at the first carpometacarpal joint. No other change is noted. Left hand 3 views: The radius fracture is again seen. There is a possible fracture involving the prox imal and of the first distal phalanx toward the ulnar side. No other fracture is seen. Prominent dege nerative changes are again seen at the first carpometacarpal joint. Left forearm 2 views: Distal radius fracture is again demonstrated. No proximal radius or ulna fractu re is seen. Impression: 1. Impacted distal radius fracture with apparent reduced angulation compared to the prior exam. Possible fracture of distal phalanx of the thumb. No other acute findings. Electronically signed by: Andrea Brasher Jr., MD (05/17/2021 7:12 AM) [id number]
[2021-05-17] MEDS ORDERED: IBUPROFEN 600 MG TABLET. PO ONE (07:35)
[2021-05-17] MEDS ORDERED: DOCU-109 PO (07:45)
[2021-05-25] MEDS ORDERED: MIDO5TAB4 PO (13:20)
[2021-05-25] MEDS ORDERED: AMLO-186 PO (13:20)
[2021-05-25] MEDS ORDERED: CALC200T23 PO (13:20)
== END 2021-05-17 08:14 | disposition home or self-care (01) ==
LOC: ER 05:08
DX: S52.502D Unspecified fracture of the lower end of left radius, subsequent encounter for closed fracture with routine healing (principal); X58.XXXD Exposure to other specified factors, subsequent encounter
CPT/HCPCS: 29125; 73090; 73110; 73130; 99284; J3490

== ENCOUNTER 2021-05-22 10:11 | Inpatient (IN) | payer MEDICARE, BC ==
[~2021-05-22] VITALS: Ht 177.8 cm; Wt 73.0 kg
[~2021-05-22 10:11] MED LIST changes: +DOCU-109 PO
--- NOTE | 2021-05-22 10:33 | PHYS DOC ---
Past History Additional Past Medical Histor: josé manuel's dx, pericarditis Past Surgical History: Appendectomy Alcohol Use: None General Adult EDM: Chief Complaint: WEAKNESS/GENERALIZED HPI: HPI: Patient is an 85-year-old male who presents to the ER via EMS for complaints of generalized fatigue since he fell 1 week ago. Patient states he was walking on steps and fell 1 week ago. He was evaluated by Dr. Ingram's office when he had imaging of his left forearm, wrist, hand, CT of head neck, CT of abdomen and pelvis, CT maxillofacial bones, and CT of thoracic and lumbar spine. Patient was noted to have an impacted distal radius fracture and possible thumb fracture. Patient presents to the ER with a splint in place. Along with the generalized fatigue patient is reporting that he just cannot catch his breath or take a full breath. He denies any new cough or chest pain, fevers. Patient denies any new trauma. Patient ambulates with a cane. He states that he has been taking diazepam and hydrocodone at home. Patient is alert and oriented x4 and his vital signs are stable. Review of Systems: Review of Systems: 14 body systems of the review of systems have been reviewed. See HPI for pertinent positive and negative responses, otherwise all other systems are negative, nonpertinent or noncontributory Allergies: Allergies: Allergies Coded Allergies Type Severity Reaction Last Updated Verified No Known Drug Allergies 05/17/21 No Physical Exam: PE: Constitutional: Well developed, well nourished, no acute distress, non-toxic appearance. [] HENT: Normocephalic, old abrasion noted to top of head with scabbing noted, bilateral external ears normal, oropharynx moist, no oral exudates, nose normal. [] Eyes: PERRL, EOMI, conjunctiva normal, no discharge. [] Neck: Normal range of motion, no tenderness, supple, no stridor. [] Cardiovascular:Heart rate regular rhythm, no murmur [] Lungs & Thorax: Bilateral breath sounds clear to auscultation [] Abdomen: Bowel sounds normal, soft, no tenderness, no masses, no pulsatile masses. [] Skin: Warm, dry, no erythema, no rash, ecchymosis in various stages noted to l. shoulder and upper arm, splint noted to l. forearm, bruising noted above splint and to thumb. . [] Back: L. posterior rib pain, no crepitis, no flail chest, no bony spinal tenderness Extremities: No tenderness, no cyanosis, no clubbing, ROM intact, no edema, L. arm: warm exremity, neurovascularly intact Neurologic: Alert and oriented X 3, normal motor function, normal sensory function, no focal deficits noted. [] Psychologic: Affect normal, judgement normal, mood normal. [] Current Patient Data: Labs: Laboratory Tests Test 05/22/21 10:50 05/22/21 11:05 White Blood Count 7.5 x10^3/uL Red Blood Count 3.46 x10^6/uL Hemoglobin 11.6 g/dL Hematocrit 34.4 % Mean Corpuscular Volume 99 fL Mean Corpuscular Hemoglobin 33 pg Mean Corpuscular Hemoglobin Concent 34 g/dL Red Cell Distribution Width 13.5 % Platelet Count 277 x10^3/uL Neutrophils (%) (Auto) 67 % Lymphocytes (%) (Auto) 22 % Monocytes (%) (Auto) 8 % Eosinophils (%) (Auto) 4 % Basophils (%) (Auto) 1 % Neutrophils # (Auto) 5.0 x10^3uL Lymphocytes # (Auto) 1.6 x10^3/uL Monocytes # (Auto) 0.6 x10^3/uL Eosinophils # (Auto) 0.3 x10^3/uL Basophils # (Auto) 0.0 x10^3/uL Sodium Level 138 mmol/L Potassium Level 4.3 mmol/L Chloride Level 99 mmol/L Carbon Dioxide Level 28 mmol/L Anion Gap 11 Blood Urea Nitrogen 27 mg/dL Creatinine 1.8 mg/dL Estimated GFR (Cockcroft-Gault) 36.0 BUN/Creatinine Ratio 15 Glucose Level 104 mg/dL Calcium Level 9.1 mg/dL Total Bilirubin 0.6 mg/dL Aspartate Amino Transf (AST/SGOT) 19 U/L Alanine Aminotransferase (ALT/SGPT) 21 U/L Alkaline Phosphatase 122 U/L Troponin I Quantitative < 0.017 ng/mL Total Protein 5.7 g/dL Albumin 3.1 g/dL Albumin/Globulin Ratio 1.2 SARS-CoV-2 Antigen (Rapid) Negative Current Medications Medications (Trade) Dose Ordered Sig/Paco Route PRN Reason Start Time Stop Time Status Last Admin Dose Admin Fentanyl Citrate (Fentanyl 2ml Vial) 50 mcg 1X ONCE IVP 05/22/21 11:30 05/22/21 11:31 DC 05/22/21 11:42 EKG: EKG: EKG performed by ER staff at 1054 shows sinus rhythm, no STEMI read by Dr. Lyman at 1136. [] Radiology/Procedures: Radiology/Procedures: PROCEDURE: SHOULDER 2+V LEFT AP Internal and external rotation views with Y-View of the left shoulder were performed along with AP and lateral views of the left humerus. Indication: Fall now with pain Comparison: None. No fracture, glenohumeral or AC joint subluxation. There is mild superior migration of the humeral head suggestive of rotator cuff injury. Electronically signed by: Wilberto Carrington MD (05/22/2021 10:52 AM) [id number] DICTATED AND SIGNED BY: WILBERTO CARRINGTON MD DATE: 05/22/211050 CC: CHICA HINKLE MD; EMERGENCY,DEPARTMENT; RAE GARCIA APRN ~MTH0 0 []PROCEDURE: CHEST AP ONLY Single AP view of the chest. Comparison: 05/07/2021. Indication: Weakness and shortness of air Findings: The heart is enlarged but stable. There is no pneumothorax or effusion. No air space or interstitial disease. Impression: 1. No acute cardiopulmonary process. Electronically signed by: Wilberto Carrington MD (05/22/2021 10:51 AM) [id number] DICTATED AND SIGNED BY: WILBERTO CARRINGTON MD DATE: 05/22/211050 CC: CHICA HINKLE MD; EMERGENCY,DEPARTMENT; RAE GARCIA APRN ~MTH0 0 Heart Score: C/O Chest Pain: No Risk Factors: Risk Factors: DM, Current or recent (<one month) smoker, HTN, HLP, family history of CAD, obesity. Risk Scores: Score 0 - 3: 2.5% MACE over next 6 weeks - Discharge Home Score 4 - 6: 20.3% MACE over next 6 weeks - Admit for Clinical Observation Score 7 - 10: 72.7% MACE over next 6 weeks - Early Invasive Strategies Course & Med Decision Making: Course & Med Decision Making Pertinent Labs and Imaging studies reviewed. (See chart for details) Patient is an 85-year-old male being seen in the ER for generalized fatigue and difficulty catching breath for 1 week since falling. Following injury patient did have imaging performed which showed a distal radius fracture. Patient has splint in place and is intact. Patient has bruising noted to his left shoulder and forearm, no imaging performed of these areas therefore x-ray imaging was performed. Due to patient's rib pain, chest x-ray was performed. Patient has already had a CT of his chest abdomen and pelvis. Patient denies any current head or neck pain. Patient states he has been taking diazepam and hydrocodone at home. Work-up in the ER consisted of blood work, urinalysis, EKG. imaging in the ER is negative for any acute findings. CBC unremarkable. Patient is noted to have slight elevation in BUN and creatinine that is consistent with his previous lab findings. I discussed patient's case with Dr. Ingram who agreed to admit the patient under his services for generalized weakness. I discussed patient's findings with him as well as treatment plan. Patient is agreeable at this time. Bridge orders placed. Care transferred at this time 1208. Martha Disclaimer: Martha Disclaimer: This electronic medical record was generated, in whole or in part, using a voice recognition dictation system. Departure Departure: Impression: Primary Impression: Generalized weakness Disposition: ADMITTED INPATIENT Admitting Physician: Chica Hinkle Condition: GOOD Referrals: CHICA HINKLE MD (PCP) RAE GARCIA AIRLINE PILOT/FIRST OFFICER May 22, 2021 10:33
--- NOTE | 2021-05-22 10:54 | RAD ---
Single AP view of the chest. Comparison: 05/07/2021. Indication: Weakness and shortness of air Findings: The heart is enlarged but stable. There is no pneumothorax or effusion. No air space or interstitial disease. Impression: 1. No acute cardiopulmonary process. Electronically signed by: Wilberto Carrington MD (05/22/2021 10:51 AM) [id number]
--- NOTE | 2021-05-22 10:55 | RAD ---
AP Internal and external rotation views with Y-View of the left shoulder were performed along with AP and lateral views of the left humerus. Indication: Fall now with pain Comparison: None. No fracture, glenohumeral or AC joint subluxation. There is mild superior migration of the humeral he ad suggestive of rotator cuff injury. Electronically signed by: Wilberto Carrington MD (05/22/2021 10:52 AM) [id number]
[2021-05-22 11:10] LABS: BASO % 1 % (0-3); EOS # 0.3 x10^3/uL (0.0-0.7); EOS % 4 % (0-3); HEMATOCRIT 34.4 % (39.0-53.0); HEMOGLOBIN 11.6 g/dL (13.0-17.5); LYMPH # 1.6 x10^3/uL (1.0-4.8); LYMPH % 22 % (24-48); MEAN CORPUSCULAR HEMOGLOBIN 33 pg (25-35); MEAN CORPUSCULAR HGB CONC 34 g/dL (31-37); MEAN CORPUSCULAR VOLUME 99 fL (79-100); MONO # 0.6 x10^3/uL (0.0-1.1); MONO % 8 % (0-9); NEUT % 67 % (31-73); PLATELET COUNT 277 x10^3/uL (140-400); RED BLOOD COUNT 3.46 x10^6/uL (4.30-5.70); RED CELL DISTRIBUTION WIDTH 13.5 % (11.5-14.5); WHITE BLOOD COUNT 7.5 x10^3/uL (4.0-11.0)
[2021-05-22 11:17] LABS: CALCIUM 9.1 mg/dL (8.5-10.1); CREATININE 1.8 mg/dL (0.7-1.3); POTASSIUM 4.3 mmol/L (3.5-5.1)
[2021-05-22 11:23] LABS: ALBUMIN 3.1 g/dL (3.4-5.0); ALBUMIN/GLOBULIN RATIO 1.2 (1.0-1.7); TOTAL BILIRUBIN 0.6 mg/dL (0.2-1.0); TOTAL PROTEIN 5.7 g/dL (6.4-8.2)
--- NOTE | 2021-05-22 11:49 | EKG ---
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
[2021-05-22] MEDS ORDERED: ONDANSETRON PF 4 MG/2 ML VIAL. IVP PRN (12:15)
[2021-05-22 14:54] VITALS: BP 177/96
[2021-05-22] MEDS ORDERED: GLYB5TAB3 PO (15:45)
[2021-05-22] MEDS ORDERED: ASPI81TA59 PO (15:45)
[2021-05-22] MEDS ORDERED: TRIA15CR2 TP (15:51)
[2021-05-22] MEDS ORDERED: BACITRACIN TP PRN (18:15)
[2021-05-22] MEDS ORDERED: POLYMYXIN B TP PRN (18:15)
[2021-05-22] MEDS ORDERED: NEOMYCIN TP PRN (18:15)
[2021-05-22] MEDS ORDERED: PRAMOXINE TP PRN (18:15)
[2021-05-22] MEDS ORDERED: [UNRECOGNIZED DRUG - OTHER] TP PRN (18:15)
[2021-05-22] MEDS ORDERED: amLODIPine BESYLATE 5 MG TABLET PO ONE (18:30)
[2021-05-22] MEDS ORDERED: TRIAMCINOLONE ACETONIDE 0.1% TOPICAL CREAM 15GM TUBE. TP PRN (19:00)
[2021-05-22 19:40] VITALS: BP 175/65
[2021-05-22] MEDS: DOCUSATE SODIUM 100 MG CAPSULE PO SCH (20:12)
[2021-05-22] MEDS: ACETAMINOPHEN 325 MG TABLET PO PRN (20:12)
[2021-05-22] MEDS: diphenhydrAMINE HCL 25 MG CAPSULE PO PRN (20:12)
[2021-05-22] MEDS: GABAPENTIN 300 MG CAPSULE. PO SCH (20:12)
[2021-05-22 23:46] VITALS: BP 192/70
[2021-05-23 00:09] VITALS: BP 161/66
[2021-05-23 05:20] VITALS: BP 160/69
[2021-05-23 07:22] LABS: BASO % 1 % (0-3); EOS # 0.7 x10^3/uL (0.0-0.7); EOS % 8 % (0-3); HEMATOCRIT 34.7 % (39.0-53.0); HEMOGLOBIN 11.8 g/dL (13.0-17.5); LYMPH # 1.9 x10^3/uL (1.0-4.8); LYMPH % 21 % (24-48); MEAN CORPUSCULAR HEMOGLOBIN 33 pg (25-35); MEAN CORPUSCULAR HGB CONC 34 g/dL (31-37); MEAN CORPUSCULAR VOLUME 98 fL (79-100); MONO # 0.7 x10^3/uL (0.0-1.1); MONO % 7 % (0-9); NEUT # 5.9 x10^3uL (1.8-7.7); NEUT % 64 % (31-73); PLATELET COUNT 312 x10^3/uL (140-400); RED BLOOD COUNT 3.53 x10^6/uL (4.30-5.70); RED CELL DISTRIBUTION WIDTH 13.3 % (11.5-14.5); WHITE BLOOD COUNT 9.3 x10^3/uL (4.0-11.0)
[2021-05-23 07:35] LABS: CALCIUM 9.2 mg/dL (8.5-10.1); CREATININE 1.4 mg/dL (0.7-1.3); GFR 48.2; POTASSIUM 3.8 mmol/L (3.5-5.1); TOTAL BILIRUBIN 0.6 mg/dL (0.2-1.0)
[2021-05-23] MEDS: DOCUSATE SODIUM 100 MG CAPSULE PO SCH ×2 (08:02→21:48)
[2021-05-23] MEDS: ASPIRIN CHEWABLE 81 MG TABLET. PO SCH (08:02)
[2021-05-23] MEDS: GABAPENTIN 300 MG CAPSULE. PO SCH ×3 (08:02→21:47)
[2021-05-23] MEDS: glyBURIDE 5 MG TABLET. PO SCH (08:02)
[2021-05-23] MEDS: amLODIPine BESYLATE 5 MG TABLET PO SCH (08:02)
[2021-05-23] MEDS: rOPINIRole 0.25 MG TABLET. PO SCH (08:03)
[2021-05-23] MEDS: ACETAMINOPHEN 325 MG TABLET PO PRN ×2 (08:21→21:47)
[2021-05-23 11:40] VITALS: BP 130/64
[2021-05-23 16:09] VITALS: BP 138/72
--- NOTE | 2021-05-23 16:21 | NUR ---
PT WAS SEEN BY PHYSICAL THERAPY TODAY. PT IS SUPERVISION/SET UP ON TRANSFERS AND WITH MEALS. PHYSICAL THERAPY RECOMMENDED ALF UPON DISCHARGE. PT HAD A GOOD DAY AND TRANSFERRED TO THE BATHROOM WELL.
--- NOTE | 2021-05-23 17:16 | HP ---
ADMIT DATE: 05/22/2021 HISTORY OF PRESENT ILLNESS: An 85-year-old gentleman had been falling at home multiple times. The patient also has a fracture to his left wrist from a previous fall. The patient notes a generalized fatigue for the last week. He is unable to get really do any major movement. He has also fallen and hit his head. The patient was so weak he was unable to stand or take care of himself. As a result of this, the patient was admitted to the hospital for further evaluation and treatment. PAST MEDICAL HISTORY: Pericarditis, urinary tract infections, BPH. He also has a history of Macon's disease, hyperglycemia. FAMILY HISTORY: Unremarkable. ALLERGIES: No known allergies. SOCIAL HISTORY: The patient denies smoking, alcohol. Presently is a FULL CODE. REVIEW OF SYSTEMS: The patient has a headache where he has fallen and scraped skin off the top of his head. Notes severe pain in that left wrist. Denies chest pain or shortness of breath. Just generalized weakness and unable to mobilize to any significant degree. The patient otherwise seems to be basically stable. Says his bowels and bladder are working presently and no problems there. He is slightly low on his iron. SARS have been negative. PHYSICAL EXAMINATION: GENERAL: White male, moderate amount of distress, hypertensive urgency. VITAL SIGNS: Blood pressure 192/70, respiratory rate 20, pulse 70, afebrile, 98% on room air. HEENT: The patient's head was atraumatic, normocephalic. Eyes: PERRLA, without jaundice. There is a traumatic area on the top of head with scraping and large Band-Aid over that. The patient's mouth and throat were normal. NECK: Supple. LUNGS: Diminished, poor movement of air. CARDIOVASCULAR: Regular sinus rhythm, S1, S2, without murmur, rub, thrill, or extra heart sounds. ABDOMEN: Soft, diffuse tenderness, but no rebounding or guarding. Positive bowel sounds, no hepatosplenomegaly was noted. EXTREMITIES: No clubbing, cyanosis, nor edema. NEUROLOGIC: The patient was alert and oriented x 3. Speech fluent, spontaneous, appropriate. Left wrist is bound up in splint. Neurologically, otherwise stable. LABORATORY DATA: EKG is stable. The sodium and potassium 137 and 3.8. BUN and creatinine 24 and 1.4, improved. Moderate protein malnutrition. Hemoglobin still low at 11.8 and hematocrit 34, white count 9. Serology is noted negative. IMPRESSION: Multiple falls, syncope, head contusion, mild concussion, fracture of the left wrist. Continue to monitor the patient accordingly with PT, OT and make further assessment for followup here in the next 2-[address]: Silvia TID: [id number]
[2021-05-23 20:15] VITALS: BP 124/65
[2021-05-23] MEDS: diphenhydrAMINE HCL 25 MG CAPSULE PO PRN (21:48)
[2021-05-24 05:47] VITALS: BP 145/71
[2021-05-24] MEDS: GABAPENTIN 300 MG CAPSULE. PO SCH ×3 (07:48→21:00)
[2021-05-24] MEDS: ASPIRIN CHEWABLE 81 MG TABLET. PO SCH (07:48)
[2021-05-24] MEDS: glyBURIDE 5 MG TABLET. PO SCH (07:48)
[2021-05-24] MEDS: DOCUSATE SODIUM 100 MG CAPSULE PO SCH ×2 (07:48→21:00)
[2021-05-24] MEDS: amLODIPine BESYLATE 5 MG TABLET PO SCH (07:48)
[2021-05-24] MEDS: rOPINIRole 0.25 MG TABLET. PO SCH (07:49)
[2021-05-24 11:50] VITALS: BP 115/57
[2021-05-24] MEDS ORDERED: CYANOCOBALAMIN (VITAMIN B-12) 1,000 MCG/ML VIAL. IM ONE (15:15)
--- NOTE | 2021-05-24 16:16 | NUR ---
ORDERED A VITAMIN B-12 SHOT. PT DOES NOT EVER COMPLAIN OF PAIN TO THIS NURSE, BUT CONTINUES TO COMPLAIN OF PAIN TO DR. ORDERED A LEFT RIB X-RAY. PT DID NOT HAVE ANY OTHER CHANGES TODAY.
[2021-05-24] MEDS: MIDODRINE 5 MG TABLET PO SCH (17:25)
[2021-05-24 20:43] VITALS: BP 126/59
[2021-05-24] MEDS: diphenhydrAMINE HCL 25 MG CAPSULE PO PRN (21:00)
[2021-05-24] MEDS: ACETAMINOPHEN 325 MG TABLET PO PRN (21:00)
--- NOTE | 2021-05-24 21:32 | PN ---
SUBJECTIVE: The patient is an 85-year-old male in with generalized weakness, orthostatic hypotension. The patient will be started on midodrine and monitor the results of that. OBJECTIVE: VITAL SIGNS: Blood pressure 115/57 sitting, however, was 145/75 supine; pulse 70; afebrile. The patient 98% on room air. GENERAL: The patient still feels weak. He was very depressed overall. LUNGS: Diminished but clear. CARDIOVASCULAR: Stable. ABDOMEN: Soft, nontender. IMPRESSION: Orthostatic hypotension, generalized weakness, syncope with contusion to the head, mild concussion as noted above. PLAN: Continue with physical and occupational therapy, possible placement in a rehab facility. CHELITA DR: Silvia TID: [id number]
[2021-05-25] MEDS: MIDODRINE 5 MG TABLET PO SCH ×2 (06:32→12:56)
[2021-05-25 06:33] VITALS: BP 125/57
--- NOTE | 2021-05-25 08:41 | RAD ---
EXAM: XR RIBS 2 VIEWS LT 05/24/2021 4:40 PM CLINICAL INDICATION: Left rib pain COMPARISON: None TECHNIQUE: 2 views of the left upper ribs FINDINGS: There are nondisplaced fractures of the anterior left fifth and sixth ribs. Slight deformi ty of the lateral left fourth rib could be a possible nondisplaced fracture. There are mild reticular changes in the left lung base. Calcified left hilar lymph nodes are noted. There are calcifications in the thoracic aorta. IMPRESSION: Nondisplaced left fifth and sixth rib fractures and possible nondisplaced left fourth ri b fracture. Electronically signed by: Ermelinda Nicole MD (05/25/2021 8:39 AM) [id number]
[2021-05-25] MEDS ORDERED: glyBURIDE 5 MG TABLET. PO SCH (09:00)
[2021-05-25] MEDS: ASPIRIN CHEWABLE 81 MG TABLET. PO SCH (09:10)
[2021-05-25] MEDS: DOCUSATE SODIUM 100 MG CAPSULE PO SCH (09:10)
[2021-05-25] MEDS: amLODIPine BESYLATE 5 MG TABLET PO SCH (09:10)
[2021-05-25] MEDS: rOPINIRole 0.25 MG TABLET. PO SCH (09:10)
[2021-05-25] MEDS: GABAPENTIN 300 MG CAPSULE. PO SCH ×2 (09:12→14:40)
[2021-05-25 10:52] VITALS: BP 123/75
[2021-05-25] MEDS ORDERED: CALCIUM CARBONATE 500 MG TAB.CHEW PO PRN (12:45)
[2021-05-25 12:56] VITALS: BP 123/75
[2021-05-25] MEDS ORDERED: CALC200T23 PO (13:20)
[2021-05-25] MEDS ORDERED: MIDO5TAB4 PO (13:20)
[2021-05-25] MEDS ORDERED: AMLO-186 PO (13:20)
--- NOTE | 2021-05-25 14:00 | DISCH ---
HOME HEALTH DISCHARGE/MEDS DISCHARGE INFORMATION: Discharge Date: May 25, 2021 Final Diagnosis: Problems Medical Problems: (1) Generalized weakness Status: Acute Frequent falls Condition on Discharge: Stable CODE STATUS: Code Status: Full HOME HEALTH: Face to Face: I certify this patient is under my care and that I, or a nurse practitioner or physician's coding assistant working with me, had a face to face encounter that meets t he physician face to face encounter requirements with this patient on May 25, 2021 Medical Condition(s): Falls, FX Long-Term For: Assess Cardiopulm Status, Assess & Educate Safety, Assess/Skilled Observatio, Medication Management Physical Therapy For: Evalulation/Treatment Occupational Therapy For: Evaluation/Treatment Homebound Status Met By: Unsteady balance w/ amb,, Extreme weakness w/ amb., Frequent falls w/ injury POST DISCHARGE ORDERS: Weight Bearing Status after Di: No restrictions DIET AFTER DISCHARGE: Regular CERTIFICATION STATEMENT: Certification Statement: Based on the above finding, I certify that this patient is confined to the home and needs intermittent long term care, physical therapy and/or speech therapy, or continues to need occupational therapy.~ This patient is under my care, and I have initiated the establishment of the plan of care.~ This patient will be followed by myself or a community physician who will periodically review the plan of care. DISCHARGE MEDICATIONS: Home Meds Active Scripts Calcium Carbonate (CALCIUM CARBONATE) 200 Mg Tab.chew, 500 MG PO PRN AFTMEALHC PRN for INDIGESTION for 30 Days, #30 TAB.CHEW Prov:CHICA HINKLE MD 05/25/21 Amlodipine Besylate (AMLODIPINE BESYLATE) 5 Mg Tablet, 5 MG PO DAILY for htn for 30 Days, #30 TAB Prov:CHICA HINKLE MD 05/25/21 Midodrine Hcl (MIDODRINE HCL) 5 Mg Tablet, 5 MG PO [id number] for orthrostatic hypotension for 30 Days, #90 TAB 1 Refill Prov:CHICA HINKLE MD 05/25/21 Docusate Sodium (COLACE) 100 Mg Capsule, 1 CAP PO BID for CONSTIPATION for 7 Days, #14 CAP 0 Refills Prov:ANGIE ARREOLA DO 05/17/21 Neomycn/Baci Zn/Pmyx Bs/Pramox (Triple Antibioti-Pain Rlf Oint) 28 Gm Oint...g., 28 GM TP TID PRN for PAIN, #1 MISC Prov:ANGIE ARREOLA DO 05/16/21 Ropinirole Hcl (ROPINIROLE HCL) 0.25 Mg Tablet, 0.25 MG PO DAILY for rls for 30 Days, #30 TAB Prov:CHICA HINKLE MD 05/09/21 Reported Medications Triamcinolone Acetonide (TRIAMCINOLONE ACETONIDE 0.025% CREAM) 15 Gm Cream..g., 1 CASTRO TP TID PRN PRN for ITCHING, #30 GM 05/22/21 Glyburide (GLYBURIDE) 5 Mg Tablet, 1 TAB PO DAILY for ., #60 TAB 5 Refills 05/22/21 Aspirin (Children's Aspirin) 81 Mg Tab.chew, 1 TAB PO DAILY for . for 30 Days, #30 TAB 0 Refills 05/22/21 Gabapentin (GABAPENTIN ) 300 Mg Capsule, 300 MG PO TID for NEUROGENIC PAIN, CAP LAST DOSE GIVEN: DATE:Today TIME:AM NEXT DOSE DUE: DATE:today TIME:afternoon 05/07/21 CHICA HINKLE MD May 25, 2021 14:00
--- NOTE | 2021-05-25 16:33 | NUR ---
discharge note pt discharged at 1633 via wheelchair accompanied by staff. pt given written and verbal instructions with verbal statement of understanding received.
--- NOTE | 2021-05-30 20:15 | DS ---
DATE OF DISCHARGE: 05/25/2021 HOSPITAL COURSE: An 85-year-old gentleman came in, has been falling at home multiple times, has been hitting his head. Also, fracture to his left wrist. The patient had general inability to ambulate without falling, as a result of this the patient was admitted to the hospital for further evaluation of his multiple falls, syncopal spells, head contusion or mild concussion. The patient made good progress. He was given additional IV fluids as well as physical and occupational therapy, made timely suggestions to the gentleman about safety at home. His creatinine did drop from 1.8 down to 1.4, showing fair degree of dehydration as well. The patient's blood pressure did show significant drops from sitting to standing 145/70 down to 115/57. He was started on midodrine to help him compensate for his orthostatic hypotension. He is also a type 2 diabetic. IMPRESSION AND PLAN: Orthostatic hypotension; syncope; mild concussion; abrasion to the head; fracture to the left wrist, stable; chronic kidney disease stage IIIA. The patient otherwise will be continued to be monitored as an outpatient with home health. He will see his orthopedic surgeon arranged by his daughter. We need to continue to monitor his blood pressure orthostatically and make adjustments accordingly. He was COVID negative. SIERRA DR: Silvia TID: [id number]
== END 2021-05-25 16:37 | disposition home health service (06) | DRG 312 ==
LOC: ER 10:11 → 1 SOUTH 12:01
PROVIDERS: ADMIT Family Medicine; ATTEND Family Medicine
DX: I95.1 Orthostatic hypotension (principal); S06.0X9A Concussion with loss of consciousness of unspecified duration, initial encounter; S52.502A Unspecified fracture of the lower end of left radius, initial encounter for closed fracture; E44.0 Moderate protein-calorie malnutrition; I16.0 Hypertensive urgency; S00.93XA Contusion of unspecified part of head, initial encounter; Z20.822 Contact with and (suspected) exposure to COVID-19; N40.0 Benign prostatic hyperplasia without lower urinary tract symptoms; R29.6 Repeated falls; Z90.49 Acquired absence of other specified parts of digestive tract; W18.39XA Other fall on same level, initial encounter; Y93.89 Activity, other specified; Y92.89 Other specified places as the place of occurrence of the external cause; Y99.8 Other external cause status; E11.22 Type 2 diabetes mellitus with diabetic chronic kidney disease; N18.31 Chronic kidney disease, stage 3a; E86.0 Dehydration
CPT/HCPCS: 36415; 71045; 71100; 73030; 73060; 80053; 83735; 84484; 85025; 87426; 93005; 96374; J3010; J3420; Q0163; U0003; 97110; 97530; 99285-25

== ENCOUNTER 2021-09-30 20:11 | Inpatient (IN) | payer MEDICARE, BC ==
[~2021-09-30] VITALS: Ht 182.9 cm; Wt 76.0 kg
[~2021-09-30 20:11] MED LIST changes: +AMLO-186 PO; +ASPI81TA59 PO; +CALC200T23 PO; +GLYB5TAB3 PO; +MIDO5TAB4 PO; +TRIA15CR2 TP
--- NOTE | 2021-09-30 21:05 | PHYS DOC ---
Past History Additional Past Medical Histor: josé manuel's dx, pericarditis (CORINNA RAMIREZ) Past Surgical History: Appendectomy (CORINNA RAMIREZ) Alcohol Use: Sober (CORINNA RAMIREZ) General Adult EDM: Chief Complaint: MECHANICAL FALL HPI: HPI: Patient is an 86 year old male who presents via EMS status post 2 falls at home today. Patient states that he hit the top of his head the first time he fell, and injured his right wrist the second time. He denies any feeling of lightheadedness or unsteadiness prior to falling. Patient states that his legs "gave out under him." He reports he has had "problems with [his] legs for years." Severity of symptoms only began today. Patient reports he may not have taken his gabapentin today. He states that he usually goes to bed around 2000 and does feel drowsy, however he states this is not unusual for him around this time in the evening. Patient had a prior fall in May in which he injured his left wrist that required surgical repair. Patient denies headache, neck pain, new back pain, upper extremity paresthesias. (CORINNA RAMIREZ) Review of Systems: Review of Systems: Constitutional: Denies fever, chills or generalized weakness Eyes: Denies change in visual acuity, visual field deficits or discharge HENT: Denies ear pain, nasal congestion or sore throat Respiratory: Denies cough or shortness of breath Cardiovascular: Denies chest pain, palpitations or edema GI: Denies abdominal pain, nausea, vomiting, bloody stools or diarrhea : Denies dysuria or hematuria Musculoskeletal: See HPI Integument: Denies rash or other skin lesion Neurologic: See HPI (CORINNA RAMIREZ) Allergies: Allergies: Allergies Coded Allergies Type Severity Reaction Last Updated Verified No Known Drug Allergies 05/17/21 No (CORINNA RAMIREZ) Physical Exam: PE: Constitutional: Well developed, well nourished, no acute distress, non-toxic appearance. HENT: Patient has ecchymosis and small hematoma to the posterior superior aspect of the school near midline that is nontender, bilateral external ears without deformity/ecchymosis or discharge, oropharynx moist, no oral exudates, nose without deformity or discharge. Eyes: PERRLA, EOMI, conjunctiva normal, no discharge. Neck: Normal range of motion, no tenderness, no stridor. Cardiovascular: Heart regular rate and rhythm. Skin: Warm, dry, no erythema. Ecchymosis noted to dorsal aspect of right hand and dorsal aspect of right wrist without abrasion, skin tear or laceration. Back: No deformity or tenderness. Extremities: Right wrist tender with some swelling, see above for ecchymosis around the skin. Extremities otherwise no tenderness, no cyanosis, no clubbing, ROM intact, no edema. Neurologic: Alert and oriented x4, no focal deficits noted. (CORINNA RAMIREZ) Current Patient Data: Labs: Laboratory Tests Test 09/30/21 21:30 09/30/21 22:34 10/01/21 00:07 10/01/21 01:50 White Blood Count 14.7 x10^3/uL (4.0-11.0) Red Blood Count 3.74 x10^6/uL (4.30-5.70) Hemoglobin 12.2 g/dL (13.0-17.5) Hematocrit 36.9 % (39.0-53.0) Mean Corpuscular Volume 99 fL (79-100) Mean Corpuscular Hemoglobin 33 pg (25-35) Mean Corpuscular Hemoglobin Concent 33 g/dL (31-37) Red Cell Distribution Width 13.4 % (11.5-14.5) Platelet Count 292 x10^3/uL (140-400) Neutrophils (%) (Auto) 80 % (31-73) Lymphocytes (%) (Auto) 13 % (24-48) Monocytes (%) (Auto) 6 % (0-9) Eosinophils (%) (Auto) 1 % (0-3) Basophils (%) (Auto) 0 % (0-3) Neutrophils # (Auto) 11.8 x10^3uL (1.8-7.7) Lymphocytes # (Auto) 1.9 x10^3/uL (1.0-4.8) Monocytes # (Auto) 0.9 x10^3/uL (0.0-1.1) Eosinophils # (Auto) 0.1 x10^3/uL (0.0-0.7) Basophils # (Auto) 0.0 x10^3/uL (0.0-0.2) Urine Collection Type Unknown Urine Color Yellow Urine Clarity Clear Urine pH 7.0 Urine Specific [place]asper 1.015 Urine Protein Neg (NEG-TRACE) Urine Glucose (UA) Neg mg/dL (NEG) Urine Ketones (Stick) Neg mg/dL (NEG) Urine Blood Small (NEG) Urine Nitrite Neg (NEG) Urine Bilirubin Neg (NEG) Urine Urobilinogen Dipstick 0.2 mg/dL (0.2 mg/dL) Urine Leukocyte Esterase Neg (NEG) Urine RBC Rare /HPF (0-2) Urine WBC Rare /HPF (0-4) Urine Squamous Epithelial Cells Occ /LPF Urine Bacteria 0 /HPF (0-FEW) Sodium Level 137 mmol/L (136-145) Potassium Level 4.1 mmol/L (3.5-5.1) Chloride Level 103 mmol/L (98-107) Carbon Dioxide Level 29 mmol/L (21-32) Anion Gap 5 (6-14) Blood Urea Nitrogen 25 mg/dL (8-26) Creatinine 1.5 mg/dL (0.7-1.3) Estimated GFR (Cockcroft-Gault) 44.4 BUN/Creatinine Ratio 17 (6-20) Glucose Level 58 mg/dL (70-99) Calcium Level 8.8 mg/dL (8.5-10.1) Total Bilirubin 0.5 mg/dL (0.2-1.0) Aspartate Amino Transf (AST/SGOT) 56 U/L (15-37) Alanine Aminotransferase (ALT/SGPT) 34 U/L (16-63) Alkaline Phosphatase 129 U/L (46-116) Total Protein 6.5 g/dL (6.4-8.2) Albumin 3.2 g/dL (3.4-5.0) Albumin/Globulin Ratio 1.0 (1.0-1.7) Glucose (Fingerstick) 53 mg/dL (70-99) 73 mg/dL (70-99) 91 mg/dL (70-99) Test 10/01/21 03:41 10/01/21 06:42 10/01/21 07:05 10/01/21 10:49 Glucose (Fingerstick) 95 mg/dL (70-99) 82 mg/dL (70-99) 84 mg/dL (70-99) Coronavirus (COVID-19)(PCR) Not detected (NOT DETECTD) SARS-CoV-2 Antigen (Rapid) Negative (NEGATIVE) Test 10/01/21 15:24 10/02/21 07:43 Erythrocyte Sedimentation Rate 35 (0-15) Creatine Kinase 1227 U/L (39-308) C-Reactive Protein 59.4 mg/L (0-3.3) White Blood Count 9.8 x10^3/uL (4.0-11.0) Red Blood Count 3.77 x10^6/uL (4.30-5.70) Hemoglobin 12.5 g/dL (13.0-17.5) Hematocrit 37.3 % (39.0-53.0) Mean Corpuscular Volume 99 fL (79-100) Mean Corpuscular Hemoglobin 33 pg (25-35) Mean Corpuscular Hemoglobin Concent 33 g/dL (31-37) Red Cell Distribution Width 13.4 % (11.5-14.5) Platelet Count 298 x10^3/uL (140-400) Neutrophils (%) (Auto) 88 % (31-73) Lymphocytes (%) (Auto) 11 % (24-48) Monocytes (%) (Auto) 1 % (0-9) Eosinophils (%) (Auto) 0 % (0-3) Basophils (%) (Auto) 0 % (0-3) Neutrophils # (Auto) 8.6 x10^3uL (1.8-7.7) Lymphocytes # (Auto) 1.0 x10^3/uL (1.0-4.8) Monocytes # (Auto) 0.1 x10^3/uL (0.0-1.1) Eosinophils # (Auto) 0.0 x10^3/uL (0.0-0.7) Basophils # (Auto) 0.0 x10^3/uL (0.0-0.2) Sodium Level 138 mmol/L (136-145) Potassium Level 5.3 mmol/L (3.5-5.1) Chloride Level 102 mmol/L (98-107) Carbon Dioxide Level 26 mmol/L (21-32) Anion Gap 10 (6-14) Blood Urea Nitrogen 24 mg/dL (8-26) Creatinine 1.5 mg/dL (0.7-1.3) Estimated GFR (Cockcroft-Gault) 44.4 BUN/Creatinine Ratio 16 (6-20) Glucose Level 175 mg/dL (70-99) Calcium Level 8.7 mg/dL (8.5-10.1) Total Bilirubin 0.3 mg/dL (0.2-1.0) Aspartate Amino Transf (AST/SGOT) 36 U/L (15-37) Alanine Aminotransferase (ALT/SGPT) 33 U/L (16-63) Alkaline Phosphatase 131 U/L (46-116) Total Protein 6.2 g/dL (6.4-8.2) Albumin 3.1 g/dL (3.4-5.0) Albumin/Globulin Ratio 1.0 (1.0-1.7) Vital Signs: VS - Last 72 Hours, by Label Date Time Temp Pulse Resp B/P (MAP) Pulse Ox O2 Delivery O2 Flow Rate FiO2 10/02/21 06:06 98.0 73 18 122/62 (82) 96 Room Air 10/02/21 05:35 63 133/55 10/01/21 22:57 97.8 63 20 133/55 (81) 97 Room Air 10/01/21 17:46 97.2 62 18 174/75 (108) 97 Room Air 10/01/21 16:55 58 18 129/61 (83) 98 10/01/21 16:55 53 133/57 10/01/21 15:55 52 18 141/68 (92) 97 10/01/21 14:55 52 17 133/57 (82) 97 10/01/21 13:55 50 18 139/54 (82) 98 10/01/21 12:55 50 17 146/84 (104) 96 10/01/21 10:53 54 18 118/57 (77) 94 Room Air 10/01/21 09:54 52 18 119/45 (69) 96 10/01/21 09:15 55 18 141/62 (88) 97 Room Air 10/01/21 08:30 51 16 128/63 (84) 96 Room Air 10/01/21 07:54 50 18 137/55 (82) 96 Room Air 10/01/21 07:23 49 18 120/47 (71) 94 Room Air 10/01/21 06:23 51 17 115/51 (72) 93 Room Air 10/01/21 05:52 55 18 117/53 (74) 93 Room Air 10/01/21 04:53 59 11 133/63 (86) 97 Room Air 10/01/21 03:53 55 19 128/57 (80) 99 Room Air 10/01/21 02:53 53 17 123/57 (79) 97 Room Air 10/01/21 01:53 48 17 130/61 (84) 97 Room Air 10/01/21 00:53 57 17 109/50 (69) 95 Room Air 09/30/21 23:53 63 20 144/47 (79) 97 Room Air 09/30/21 21:52 63 19 121/46 (71) 94 Room Air 09/30/21 21:25 65 18 135/66 (89) 98 Room Air 09/30/21 20:11 97.9 83 20 129/58 (81) 95 (CORINNA RAMIREZ) EKG: EKG: EKG Interpreted by Dr. Fox at 2027: Sinus arrhythmia 67 bpm with no ectopic beats. QT 376 ms/QTc 400 ms. No STEMI. (CORINNA RAMIREZ) Radiology/Procedures: Radiology/Procedures: PROCEDURE: CT HEAD AND CERVICAL SPINE WO Exam: CT head and cervical spine without contrast INDICATION: Mechanical fall, hit head TECHNIQUE: Sequential axial images through the head were obtained without the administration of IV contrast. Exposure: One or more of the following in the visualized dose reduction techniques were utilized for this examination: 1. Automated exposure control 2. Adjustment of the MA and/or KV according to patient size 3. Use of iterative of reconstructive technique Comparisons: None FINDINGS: Head: No focal parenchymal lesion or hemorrhage is identified. There is no midline shift or sulcal effacement. No acute vascular territory infarction is identified. Garcia-white distinction is preserved. The ventricular system is within normal limits without compression hy drocephalus. The basal cisterns are well maintained. The visualized portions of the paranasal sinuses and mastoid air cells are well- pneumatized. No acute fractures. Cervical spine: Vertebral body heights and alignment are well-maintained. Fracture to the cervical spine is not identified. Multilevel spondylotic change in cervical spine with degenerative disc disease greatest at C3-C4, C4-C5 and C5-C6. Mild bilateral facet arthropathy is also noted in the cervical spine. Visualized paraspinal soft tissues are unremarkable. IMPRESSION: 1. No acute intracranial abnormality. 2. Negative CT C-spine for acute traumatic injury. Electronically signed by: Della Jimenez MD (09/30/2021 9:18 PM) [place] Exam: Right hand 3 views. Right forearm 2 views INDICATION: Mechanical fall, right hand and forearm pain TECHNIQUE: Frontal, lateral oblique views of the right hand. Frontal and lateral views the right forearm Comparisons: None FINDINGS: Right hand: Bone mineralization is normal. 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 No acute fracture identified. Joint spaces are well-maintained. Forearm: Bone mineralization is normal. No acute or healed fractures. Soft tissues are unremarkable. Joint spaces are well-maintained. IMPRESSION: 1. 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 2. No acute osseous abnormality of the right forearm. Electronically signed by: Della Jimenez MD (09/30/2021 10:46 PM) [place] (CORINNA RAMIREZ) Heart Score: C/O Chest Pain: No (CORINNA RAMIREZ) Course & Med Decision Making: Course & Med Decision Making Pertinent Labs and Imaging studies reviewed. (See chart for details) Patient is an 86-year-old male who presents status post 2 mechanical falls today. His only complaint is his right hand and right wrist. He states he did hit his head earlier today and has a small hematoma, but it is not bothering him or painful in any way. Patient seems extremely drowsy, but he states this is typical for him at this time of day. Patient is somewhat of a poor historian regarding what medications he has or has not taken today. Patient states he has has a home health nurse that sets out his medications for him. Work-up today will include CT head and neck plain, plain films of right hand and forearm, labs. Patient lives with at home, who is unable to help care for the patient. Due to his increased weakness and inability to ambulate safely at home, patient will be admitted to hospital for PT/OT evaluation. Dr. Ingram (PCP) gladly accepts patient. (CORINNA RAMIREZ) Course & Med Decision Making Did not see or evaluate patient. Did not discuss patient with SALES SPECIALIST. Agree with SALES SPECIALIST's work-up and disposition per note. (JOSE FOX MDCheli Thomas Disclaimer: Dragjoaquina Disclaimer: This electronic medical record was generated, in whole or in part, using a voice recognition dictation system. (CORINNA RAMIREZ) Departure Departure: Impression: Primary Impression: Generalized weakness Additional Impression: Multiple falls Disposition: ADMITTED INPATIENT Admitting Physician: Chica Hinkle (CORINNA RAMIREZ) Condition: GUARDED Referrals: CHICA HINKLE MD (PCP) Scripts Prednisone (PREDNISONE) 5 Mg Tablet 5 MG PO DAILY for sob for 30 Days, #60 TAB Prov: CHICA HINKLE MD 10/06/21 Guaifenesin/Dextromethorphan (GUAIFENESIN DM SYRUP) 5 Ml Syrup 10 ML PO PRN Q6HRS PRN for COUGH for 30 Days, #180 MISC Prov: CHICA HINKLE MD 10/06/21 Magnesium Chloride (Magnesium Chloride) 70 Mg Tablet.dr 64 MG PO DAILY for myopathy for 30 Days, #28 TAB 6 Refills Prov: CHICA HINKLE MD 10/06/21 Calcium Carbonate/Vitamin D3 (OYSCO 500+D TABLET) 1 Each Tablet 1 TAB PO BIDWMEALS for osteopenia for 30 Days, #60 TAB 6 Refills Prov: CHICA HINKLE MD 10/06/21 Bupropion Hcl (BUPROPION XL) 150 Mg Tab.er.24h 150 MG PO DAILY for neuropathy for 30 Days, #30 TAB.SR 6 Refills Prov: CHICA HINKLE MD 10/06/21 Ipratropium/Albuterol Sulfate (DUONEB 0.5-3(2.5) MG/3 ML) 3 Ml Ampul.neb 3 ML NEB TID for pulmonary fibrosis for 30 Days, #90 EACH Prov: CHICA HINKLE MD 10/06/21 CORINNA RAMIREZ Sep 30, 2021 21:05 JOSE FOX MD Oct 06, 2021 18:34
--- NOTE | 2021-09-30 21:21 | RAD ---
Exam: CT head and cervical spine without contrast INDICATION: Mechanical fall, hit head TECHNIQUE: Sequential axial images through the head were obtained without the administration of IV co ntrast. Exposure: One or more of the following in the visualized dose reduction techniques were utilized for this examination: 1. Automated exposure control 2. Adjustment of the MA and/or KV according to patient size 3. Use of iterative of reconstructive technique Comparisons: None FINDINGS: Head: No focal parenchymal lesion or hemorrhage is identified. There is no midline shift or sulcal effaceme nt. No acute vascular territory infarction is identified. Garcia-white distinction is preserved. The ventricular system is within normal limits without compression hydrocephalus. The basal cisterns are well maintained. The visualized portions of the paranasal sinuses and mastoid air cells are well-pneumatized. No acute fractures. Cervical spine: Vertebral body heights and alignment are well-maintained. Fracture to the cervical spine is not identified. Multilevel spondylotic change in cervical spine with degenerative disc disease greatest at C3-C4, C4- C5 and C5-C6. Mild bilateral facet arthropathy is also noted in the cervical spine. Visualized paraspinal soft tissues are unremarkable. IMPRESSION: 1. No acute intracranial abnormality. 2. Negative CT C-spine for acute traumatic injury. Electronically signed by: Della Jimenez MD (09/30/2021 9:18 PM) [place]
[2021-09-30 21:55] LABS: BASO % 0 % (0-3); EOS # 0.1 x10^3/uL (0.0-0.7); EOS % 1 % (0-3); HEMATOCRIT 36.9 % (39.0-53.0); HEMOGLOBIN 12.2 g/dL (13.0-17.5); LYMPH # 1.9 x10^3/uL (1.0-4.8); LYMPH % 13 % (24-48); MEAN CORPUSCULAR HEMOGLOBIN 33 pg (25-35); MEAN CORPUSCULAR HGB CONC 33 g/dL (31-37); MEAN CORPUSCULAR VOLUME 99 fL (79-100); MONO # 0.9 x10^3/uL (0.0-1.1); MONO % 6 % (0-9); NEUT # 11.8 x10^3uL (1.8-7.7); NEUT % 80 % (31-73); PLATELET COUNT 292 x10^3/uL (140-400); RED BLOOD COUNT 3.74 x10^6/uL (4.30-5.70); RED CELL DISTRIBUTION WIDTH 13.4 % (11.5-14.5); WHITE BLOOD COUNT 14.7 x10^3/uL (4.0-11.0)
[2021-09-30 22:01] LABS: BILIRUBIN,URINE NEG (NEG); CLARITY,URINE CLEAR; COLOR,URINE YELLOW; GLUCOSE,URINE NEG (NEG); NITRITE,URINE NEG (NEG); UROBILINOGEN,URINE 0.2 mg/dL (0.2 mg/dL)
[2021-09-30 22:02] LABS: BACTERIA,URINE 0 /HPF (0-FEW); RBC,URINE RARE /HPF (0-2); SQUAMOUS EPITHELIAL CELL,UR OCC /LPF; WBC,URINE RARE /HPF (0-4)
[2021-09-30 22:04] LABS: CALCIUM 8.8 mg/dL (8.5-10.1); CREATININE 1.5 mg/dL (0.7-1.3); GFR 44.4; POTASSIUM 4.1 mmol/L (3.5-5.1)
[2021-09-30 22:09] LABS: ALBUMIN 3.2 g/dL (3.4-5.0); TOTAL BILIRUBIN 0.5 mg/dL (0.2-1.0); TOTAL PROTEIN 6.5 g/dL (6.4-8.2)
[2021-09-30] MEDS ORDERED: IV DEXTROSE 5%-LACT RINGERS 1,000 ML IV ONE (22:30)
[2021-09-30] MEDS ORDERED: DEXTROSE 50% 25 GM / 50ML DISP.SYRIN. IV ONE (22:35)
--- NOTE | 2021-09-30 22:49 | RAD ---
Exam: Right hand 3 views. Right forearm 2 views INDICATION: Mechanical fall, right hand and forearm pain TECHNIQUE: Frontal, lateral oblique views of the right hand. Frontal and lateral views the right fore arm Comparisons: None FINDINGS: Right hand: Bone mineralization is normal. 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 No acute fracture identified. Joint spaces are well-maintained. Forearm: Bone mineralization is normal. No acute or healed fractures. Soft tissues are unremarkable. Joint spa munira are well-maintained. IMPRESSION: 1. 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 2. No acute osseous abnormality of the right forearm. Electronically signed by: Della Jimenez MD (09/30/2021 10:46 PM) DOMO
[2021-10-01] MEDS ORDERED: [UNRECOGNIZED DRUG - OTHER] TP PRN (09:15)
[2021-10-01] MEDS ORDERED: POLYMYXIN B TP PRN (09:15)
[2021-10-01] MEDS ORDERED: NEOMYCIN TP PRN (09:15)
[2021-10-01] MEDS ORDERED: PRAMOXINE TP PRN (09:15)
[2021-10-01] MEDS ORDERED: BACITRACIN TP PRN (09:15)
[2021-10-01] MEDS ORDERED: CALCIUM CARBONATE 500 MG TAB.CHEW PO PRN (09:15)
[2021-10-01] MEDS ORDERED: TRIAMCINOLONE ACETONIDE 0.5% TOPICAL CREAM 15GM TUBE. TP PRN (09:30)
[2021-10-01] MEDS: ASPIRIN CHEWABLE 81 MG TABLET. PO SCH (11:30)
--- NOTE | 2021-10-01 14:40 | RAD ---
EXAM: Chest, single view. HISTORY: Leukocytosis. COMPARISON: 05/22/2021 FINDINGS: A frontal view of the chest is obtained. There is mild focal increased interstitial opacity . There is no consolidation, pleural effusion or pneumothorax. There is a stable cardiac silhouette. There are calcified granulomas. IMPRESSION: Suspected multifocal bilateral atelectasis or interstitial infiltrate. There is no consol idated pneumonia. Electronically signed by: Yocasta Echeverria MD (10/01/2021 2:38 PM) [id number]
--- NOTE | 2021-10-01 14:41 | RAD ---
EXAM: Pelvis and bilateral hips, 4 views. HISTORY: Pain. COMPARISON: None. FINDINGS: Frontal views of the pelvis and frog-leg views of both hips are obtained. There is marginal acetabular and femoral head spurring, subchondral sclerosis and subchondral cyst formation. There is no acute fracture, dislocation or subluxation. There is degenerative change at the lumbosacral junct ion. IMPRESSION: Mild to moderate bilateral hip osteoarthritis. Electronically signed by: Yocasta Echeverria MD (10/01/2021 2:39 PM) [id number]
--- NOTE | 2021-10-01 14:53 | RAD ---
EXAMINATION: CT LUMBAR SPINE WO, 10/01/2021 1:50 PM CLINICAL INDICATION: CT lumbar spine 05/16/2021 COMPARISON: Leg weakness TECHNIQUE: Helical CT imaging performed of the lumbar spine without the use of intravenous contrast. Sagittal and coronal reformats were obtained. One or more of the following individualized dose reduction techniques were utilized for this examinat ion: 1. Automated exposure control 2. Adjustment of the mA and/or kV according to patient size 3. Use of iterative reconstruction technique. FINDINGS: There are 5 nonrib-bearing lumbar vertebral bodies. No acute fracture. There are chronic bi lateral L5 pars defects with 1-2 mm anterolisthesis, unchanged. Alignment is normal. Mild leftward cu rvature of the lower lumbar spine. There is moderate disc space narrowing with endplate sclerosis and prominent anterior osteophytes at L2-L3. Remaining disc spaces are maintained. Mild multilevel facet arthrosis. L1: No disc herniation or canal or foraminal narrowing. L1-L2: Small broad-based disc bulge. No canal or foraminal narrowing. L2-L3: There is a broad-based disc bulge, slightly greater on the left. Mild canal and moderate wall foraminal narrowing. There is posterior endplate proliferation on the left contributing to the forami nal narrowing. L3-L4: Small central disc protrusion superimposed on a broad-based disc bulge. Probable mild canal na rrowing. No foraminal narrowing. L4-L5: Small broad-based disc bulge. Minimal canal narrowing. Minimal right foraminal narrowing. L5-S1: Trace broad-based disc bulge. No canal narrowing. There is mild bilateral foraminal narrowing. There is severe calcified aortoiliac atherosclerosis. 2 cm simple right renal cyst. Calcified splenic granulomas. IMPRESSION: 1. No acute osseous abnormality. 2. Chronic bilateral L5 pars defects with minimal spondylolisthesis at L5-S1. 3. Unchanged degenerative disc disease, greatest at L2-L3. 4. Severe calcified aortoiliac atherosclerosis. Electronically signed by: Ermelinda Nicole MD (10/01/2021 2:50 PM) [id number]
[2021-10-01 16:37] LABS: C REACTIVE PROTEIN 59.4 mg/L (0-3.3)
[2021-10-01] MEDS: GABAPENTIN 300 MG CAPSULE. PO SCH ×2 (16:52→20:08)
[2021-10-01] MEDS: LIDOCAINE 2% TOPICAL JELLY 30GM TUBE. TP SCH ×2 (16:53→21:00)
[2021-10-01] MEDS: TRIAMCINOLONE ACETONIDE 0.5% TOPICAL CREAM 15GM TUBE. TP PRN (16:53)
[2021-10-01] MEDS: MIDODRINE 5 MG TABLET PO SCH ×2 (16:55→17:55)
[2021-10-01 17:46] VITALS: BP 174/75
--- NOTE | 2021-10-01 19:18 | EKG ---
[address] [address] Test Date: 2021-09-30 Test Time: 20:28:28 Pat Name: AURORA GARNER Department: Room: 111 A Gender: M Simplex Operator: : [id number] Requested By: CORINNA RAMIREZ Order Number: [id number] Reading MD: Yossi Vasquez Measurements Intervals Ada Rate: 67 P: 34 MT: 158 QRS: -28 QRSD: 92 T: 46 QT: 376 QTc: 400 Interpretive Statements SINUS ARRHYTHMIA LEFTWARD AXIS Electronically Signed On 10-02-2021 13:07:12 STONE TRIMMER by Yossi Vasquez
[2021-10-01] MEDS: DOCUSATE SODIUM 100 MG CAPSULE PO SCH (20:08)
[2021-10-01] MEDS ORDERED: TRIAMCINOLONE ACETONIDE 0.1% TOPICAL CREAM 15GM TUBE. TP SCH (21:00)
[2021-10-01 22:57] VITALS: BP 133/55
[2021-10-01] MEDS ORDERED: AZITHROMYCIN 250 MG in IV NORMAL SALINE 250ML 250 ML IV SCH (23:30)
[2021-10-02] MEDS: DEXAMETHASONE SOD PHOS 4 MG/ML VIAL. IVP SCH ×4 (00:30→18:29)
[2021-10-02] MEDS: MIDODRINE 5 MG TABLET PO SCH ×3 (05:35→18:29)
[2021-10-02 06:06] VITALS: BP 122/62
--- NOTE | 2021-10-02 07:19 | HP ---
DATE OF SERVICE: 10/01/2021 ADMIT DATE: 09/30/2021 HISTORY OF PRESENT ILLNESS: An 86-year-old male who has been having problems with weakness in his legs. He has been falling at home several times because his legs give out on him. He does not know exactly why, they just feel extremely weak and he is unable to support his weight. As a result of this, the patient was brought in through the Emergency Room. The patient was noted to have basically no strength in his lower legs. Question is whether or not the patient has some type of neurological or muscle atrophy or dysfunction. The patient apparently fell. He injured his wrist the second time. He has had numerous falls. He has been unsteady in his gait. The patient notes that his legs just gave out from underneath him. The patient notes symptoms began to get worse the day of admission. The patient ____ bed, however, the patient has been extremely difficult with his paresthesias. He denies chest pain, shortness of breath. PAST MEDICAL HISTORY: Adenoidectomy, pericarditis, coronary artery disease, hypotension, urinary tract infection, has a history of chickenpox. FAMILY HISTORY: Unremarkable. ALLERGIES: The patient has no known allergies. MEDICATIONS: Midodrine, amlodipine, aspirin, gabapentin, Robinul, calcium carbonate, docusate sodium, glyburide, neomycin and triamcinolone. The patient has also what is called [place]'s disease and has a chronic rash that has been evaluated down at . The patient denies any smoking, alcohol or drug use. He is a full code. REVIEW OF SYSTEMS: As noted above. He denies headaches, visual changes, blurred vision, double vision. Does have a history of possible early Parkinson's with fine resting tremor. Other than that, the patient denies any other abdominal pain. Denies any melena, hematochezia or hematemesis. Neurologically stable except for his legs, which showed extreme weakness. PHYSICAL EXAMINATION: VITAL SIGNS: Blood pressure 130/70, respiratory rate 18, pulse 50, afebrile. HEENT: The patient's head was atraumatic, normocephalic. Eyes: PERRLA without jaundice. The mouth and throat were normal. NECK: Supple without JVD, carotid bruits or thyroidmegaly. LUNGS: Diminished throughout, but basically clear. CARDIOVASCULAR: Regular sinus rhythm, S1, S2. ABDOMEN: Soft, nontender. No rebound or guarding. Positive bowel sounds. No hepatosplenomegaly was noted. EXTREMITIES: No clubbing, cyanosis nor edema. NEUROLOGIC: The patient definitely neurologically alert and oriented; however, his legs show decreased reflexes. Plantars down. The patient has a marked decreased strength to the muscles of the upper leg, very little resistance is needed to overcome his leg strength. DIAGNOSTIC DATA: X-rays shows severe calcific aortic atherosclerosis, chronic changes to his lumbar spine. The hip shows severe osteoarthritis of the hips. The chest x-ray shows suspected multifocal bilateral atelectasis or possible interstitial infiltrates. Neck x-rays were basically negative as was the CT of his head. LABORATORY DATA: The patient did show an elevated white count of 14,000. Sed rate was elevated at 35. The patient did have an elevated C-reactive protein of 59.4. Creatine kinase of over 1200. The patient is COVID negative. IMPRESSION AND PLAN: Myopathy, severe muscle weakness, history of Parkinson's disease, orthostatic hypotension. The patient will be monitored by Neurology. We will ____ some steroids and see if that does not help him. Also, we will consider possible antibiotic use for possible infiltrative process in the lungs. He is COVID negative. FALGUNI/RASHEL/GAETANO DR: FALGUNI/jorge TID: [id number]
[2021-10-02] MEDS: ASPIRIN CHEWABLE 81 MG TABLET. PO SCH (07:59)
[2021-10-02] MEDS: DOCUSATE SODIUM 100 MG CAPSULE PO SCH ×2 (07:59→20:23)
[2021-10-02] MEDS: rOPINIRole 0.25 MG TABLET. PO SCH (07:59)
[2021-10-02] MEDS: GABAPENTIN 300 MG CAPSULE. PO SCH ×3 (07:59→20:32)
[2021-10-02 08:00] LABS: BASO % 0 % (0-3); EOS % 0 % (0-3); HEMATOCRIT 37.3 % (39.0-53.0); HEMOGLOBIN 12.5 g/dL (13.0-17.5); LYMPH % 11 % (24-48); MEAN CORPUSCULAR HEMOGLOBIN 33 pg (25-35); MEAN CORPUSCULAR HGB CONC 33 g/dL (31-37); MEAN CORPUSCULAR VOLUME 99 fL (79-100); MONO # 0.1 x10^3/uL (0.0-1.1); MONO % 1 % (0-9); NEUT # 8.6 x10^3uL (1.8-7.7); NEUT % 88 % (31-73); PLATELET COUNT 298 x10^3/uL (140-400); RED BLOOD COUNT 3.77 x10^6/uL (4.30-5.70); RED CELL DISTRIBUTION WIDTH 13.4 % (11.5-14.5); WHITE BLOOD COUNT 9.8 x10^3/uL (4.0-11.0)
[2021-10-02 08:18] LABS: ALBUMIN 3.1 g/dL (3.4-5.0); CALCIUM 8.7 mg/dL (8.5-10.1); CREATININE 1.5 mg/dL (0.7-1.3); GFR 44.4; POTASSIUM 5.3 mmol/L (3.5-5.1); TOTAL BILIRUBIN 0.3 mg/dL (0.2-1.0); TOTAL PROTEIN 6.2 g/dL (6.4-8.2)
[2021-10-02] MEDS: LIDOCAINE 2% TOPICAL JELLY 30GM TUBE. TP SCH ×3 (08:43→20:33)
[2021-10-02] MEDS ORDERED: glyBURIDE 5 MG TABLET. PO SCH (09:00)
[2021-10-02] MEDS: LACTOBACILLUS RHAMNOSUS GG 1 CAPSULE. PO SCH ×2 (10:03→20:23)
[2021-10-02 11:46] VITALS: BP 136/63
--- NOTE | 2021-10-02 13:42 | RAD ---
EXAM: Chest CT without intravenous contrast. HISTORY: Shortness of breath. TECHNIQUE: Computed tomographic images of the chest were obtained without contrast. Multiplanar refor matting was performed. *One or more of the following individualized dose reduction techniques were utilized for this examina tion: 1. Automated exposure control. 2. Adjustment of the mA and/or kV according to patient size. 3. Use of iterative reconstruction technique. COMPARISON: 05/16/2021. FINDINGS: The heart is normal in size. The aorta is normal in caliber. There is coronary artery calci fication. There is calcified atherosclerotic plaque involving the aorta and aortic arch great vessels . No pathologically enlarged mediastinal or hilar lymph node is seen. There are calcified left hilar and perihilar granulomas. There is no pneumothorax or pleural effusion. There is left greater than right lower lobe interstitia l infiltrate. There is bilateral basilar and posterior dependent atelectasis. There is a 10 mm spicul ated nodule within the right lower lobe. There is cholelithiasis. There is renal atrophy. There is a suspected right extrarenal pelvis or right pelviectasis. There is colonic diverticulosis. There are splenic granulomas. There are degenerative changes throughout the s pine. There are moderate compression fractures of T5 and T6. These are both increased compared to the prior study. IMPRESSION: 1. Left greater than right lower lobe interstitial infiltrate. 2. 10 mm spiculated right lower lobe pulmonary nodule, minimally increased compared to the prior stud y with allowing for differences in slice position and volume averaging. This may be within limits for characterization with PET/CT. 3. Moderate T5 and T6 compression fractures, increased compared to the prior study. No convincing fra cture line is seen to suggest an acute etiology. These may be subacute or chronic. 4. Stable suspected right extra renal pelvis or pelviectasis. 5. Cholelithiasis. 6. Colonic diverticulosis. Electronically signed by: Yocasta Echeverria MD (10/02/2021 1:40 PM) [id number]
[2021-10-02 15:35] VITALS: BP 163/68
[2021-10-02] MEDS: guaiFENesin DM 200MG/20MG 10 ML SYRUP PO PRN (17:57)
[2021-10-02 19:58] VITALS: BP 164/75
[2021-10-02 23:22] VITALS: BP 155/64
--- NOTE | 2021-10-02 23:23 | CONS ---
NEUROLOGICAL CONSULTATION REFERRING PHYSICIAN: Dr. Damon. REASON FOR CONSULTATION: Frequent falls and weakness of the lower extremities. HISTORY OF PRESENT ILLNESS: This is an 86-year-old right-handed male, has had frequent falls in the last 2 weeks. According to the patient, the last 2 falls was the day before admission when he tried to reach out his clothes out in the laundry. He bent forwards and then he could not get up. He crawled on the floor until his helped him to get up. The second fall was when he tried to walk at home and all of sudden, his leg gave up on him and he fell forward. The patient denies any previous symptoms prior to falls as dizziness, headaches, chest pain, shortness of breath or palpitation. He denies dysarthria or dysphagia. He complains of intermittent lower back pain, numbness and tingling of the legs. He denies bowel or bladder dysfunction. The patient has no history of a stroke or TIA in the past. PAST MEDICAL HISTORY: Significant coronary artery disease, hypertension, urinary tract infections, pericarditis. PAST SURGICAL HISTORY: Positive for adenoidectomy. FAMILY HISTORY: Positive for Parkinson disease. SOCIAL HISTORY: The patient lives with his at home. He denies smoking, alcohol drinking or illicit drug use. CURRENT HOME MEDICATIONS: Midodrine, amlodipine, aspirin, gabapentin, ropinirole, calcium, docusate, glyburide, neomycin, and triamcinolone. ALLERGIES: No known drug allergies. REVIEW OF SYSTEMS: A 10-point review of system was performed as mentioned above in history of present illness; otherwise, unremarkable. PHYSICAL EXAMINATION: GENERAL: Well-developed, well-nourished male in no acute distress. He weighs 70.5 kilos. VITAL SIGNS: Blood pressure 122/62, respiratory rate 18, pulse is 73 and regular, temperature is 98, oxygen saturation 96% on room air. HEENT: Normocephalic, atraumatic; otherwise, unremarkable. NECK: Supple. Negative for carotid bruit, lymphadenopathy or thyromegaly. LUNGS: Clear to A and P. CARDIOVASCULAR: Regular rate and rhythm. Normal S1, S2. There is no S3, S4 or murmur. ABDOMEN: Soft. Bowel sounds positive. EXTREMITIES: Negative for cyanosis, clubbing or pedal edema. NEUROLOGIC: Mental status: The patient is alert and oriented x3. The speech is fluent. There is no language dysfunction. Memory, judgment and abstracting thinking are fair. The patient denies hallucination or delusion. Cranial nerves: Visual urrutia are full. The pupils are reactive to light and accommodation. The extraocular movements are intact. There is no nystagmus. There is no facial, motor, or sensory deficit. Hearing is intact bilaterally. The palate is elevated symmetrically. Sternocleidomastoid muscles are powerful bilaterally. The patient shrugs his shoulders symmetrically, protrudes his tongue in the midline without fasciculation or atrophy. Motor exam: No focal muscle bulk wasting. The tone is normal. The strength is 4/5 throughout. Sensory examination revealed normal pinprick, light touch, position senses. Deep tendon reflexes were symmetric and hypoactive with absent Achilles responses. Gait: The patient uses a walker for ambulation without significant problems; however, the patient does not use a walker at home. DIAGNOSTIC: A nonenhanced head CT scan revealed no evidence of acute intracranial process. Cervical spine CT revealed evidence of degenerative disk disease at multiple levels. A lumbar spine CT scan revealed evidence of degenerative disk disease at multiple levels with spondylosis at L5-S1. A cervical spine CT scan revealed evidence of degenerative disk at multiple levels, and x-ray of the right hip revealed no evidence of acute changes. 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 LABORATORY DATA: CBC revealed blood cells of 9800, hemoglobin 12.5, hematocrit 37.3, platelet count 298,000. Chemistry revealed sodium of 138, potassium 5.3, chloride 102, CO2 of 26, BUN 24, creatinine 1.5, glucose 175. Liver enzymes are normal. Urinalysis, no evidence of urinary tract infections. The patient has negative COVID-19. IMPRESSION: 1. Frequent falls with weakness of the lower extremities and degenerative disk disease of the lumbar spine; however, peripheral neuropathy in the lower extremity versus lumbosacral radiculopathy and orthostatic hypotension may have contributed to the current falls. 2. History of hypertension and possible orthostatic hypotension, coronary artery disease and possible diabetes as the patient is on glyburide. RECOMMENDATIONS: 1. Continue with current management initiated by Dr. Damon. 2. Physical therapy as tolerated. 3. We will arrange for EMG/NCS of the lower extremities to rule out entrapment neuropathy in the lower extremities, peripheral neuropathy or lumbosacral radiculopathy. BRADY/TIMA/LEROY DR: Genia TID: [id number]
[2021-10-02] MEDS: AZITHROMYCIN 500 MG in IV NORMAL SALINE 250ML 250 ML IV SCH (23:55)
[2021-10-03] MEDS: DEXAMETHASONE SOD PHOS 4 MG/ML VIAL. IVP SCH ×4 (00:05→22:03)
[2021-10-03 06:08] VITALS: BP 138/63
[2021-10-03] MEDS: MIDODRINE 5 MG TABLET PO SCH ×3 (07:00→18:13)
[2021-10-03 08:50] LABS: CALCIUM 9.1 mg/dL (8.5-10.1); CREATININE 1.6 mg/dL (0.7-1.3); GFR 41.2
[2021-10-03] MEDS: LIDOCAINE 2% TOPICAL JELLY 30GM TUBE. TP SCH ×3 (09:00→20:58)
[2021-10-03] MEDS: ASPIRIN CHEWABLE 81 MG TABLET. PO SCH (09:00)
[2021-10-03] MEDS: GABAPENTIN 300 MG CAPSULE. PO SCH ×3 (09:34→20:57)
[2021-10-03] MEDS: DOCUSATE SODIUM 100 MG CAPSULE PO SCH ×2 (09:34→20:57)
[2021-10-03] MEDS: rOPINIRole 0.25 MG TABLET. PO SCH (09:35)
[2021-10-03] MEDS: LACTOBACILLUS RHAMNOSUS GG 1 CAPSULE. PO SCH ×2 (09:35→20:57)
--- NOTE | 2021-10-03 10:08 | PN ---
DATE: 10/02/2021 SUBJECTIVE: The patient admitted with generalized weakness in his legs where he could not stand. The patient does have right lower lobe interstitial infiltrates, left greater than right, infiltrative processes. He also has a compression fracture in his back as well as cholelithiasis. The patient says he is still very weak. He is receiving physical and occupational therapy, IV antibiotic therapy. OBJECTIVE: VITAL SIGNS: The patient's blood pressure 160/70, respiratory 22, pulse 90, afebrile. GENERAL: The patient is alert and oriented. The patient is still very weak, difficulty standing on his feet. The patient receiving PT/OT. We will get him more stable. Otherwise, the patient is making fairly prompt, good progress, but continues to granados with pneumonia, which may be underlying his generalized weakness as well. LABORATORY DATA: His white count has come down from 47 down to 9.8 and chemistries show a slightly elevated potassium of 5.3. He did have an elevated C-reactive protein as noted. We will continue to monitor the patient accordingly and make further evaluation on him. Continue with PT, OT, and IV antibiotic therapy. IMPRESSION: Pneumonia, bilateral lobe pneumonia, generalized weakness, compression fractures, possible myopathy and make further assessment on him as indicated, as he progresses with fighting the infection. FALGUNI/YESSENIA/FABIEN DR: FALGUNI/jorge TID: [id number]
[2021-10-03 10:23] VITALS: BP 124/56
[2021-10-03 13:27] VITALS: BP 134/52
[2021-10-03] MEDS ORDERED: DEXAMETHASONE SOD PHOS 4 MG/ML VIAL. IVP SCH (14:00)
[2021-10-03 15:30] VITALS: BP 125/65
[2021-10-03] MEDS: CALCIUM CARB/VIT D3 500/200 TABLET PO SCH (16:58)
[2021-10-03 19:00] VITALS: BP 147/63
[2021-10-03] MEDS: guaiFENesin DM 200MG/20MG 10 ML SYRUP PO PRN (20:57)
[2021-10-03] MEDS: TRIAMCINOLONE ACETONIDE 0.5% TOPICAL CREAM 15GM TUBE. TP PRN (20:58)
--- NOTE | 2021-10-03 23:32 | PN ---
SUBJECTIVE: An 86-year-old gentleman in with pneumonia, generalized weakness and paresthesias to his legs. He is resting fairly comfortably, making fairly good progress overall. He is walking and moving along, fairly well on his own. The patient denies any chest pain. Does have some shortness of breath and coughing up some mucus. Otherwise, he is making good improvement. OBJECTIVE: VITAL SIGNS: Blood pressure 125/65, respirations 16, pulse 60, afebrile, 91% room air. LUNGS: Diminished, some baseline crackles. CARDIOVASCULAR: Regular sinus rhythm. ABDOMEN: Soft, nontender. EXTREMITIES: Without clubbing, cyanosis or edema. NEUROLOGIC: Intact. We will go ahead and continue to monitor the patient accordingly and make further evaluation on him as indicated. IMPRESSION: Pneumonia of unspecified etiology, community acquired, generalized weakness to the lower extremities, type of a myopathy. PLAN: Continue to monitor the patient on that and continue to taper down on steroids. He is COVID negative. He also has chronic renal insufficiency. MARYA DR: Silvia TID: [id number]
[2021-10-03] MEDS: AZITHROMYCIN 500 MG in IV NORMAL SALINE 250ML 250 ML IV SCH (23:36)
--- NOTE | 2021-10-03 23:48 | PN ---
SUBJECTIVE: The patient denies any new medical or neurological complaints. He continued to have pain of the mid lower back. OBJECTIVE: GENERAL: Well-developed, well-nourished male, in no acute distress. VITAL SIGNS: Blood pressure 125/65, respiratory rate 16, pulse is 66, temperature 98, oxygen 91% on room air. HEENT: Normocephalic, atraumatic; otherwise, unremarkable. NECK: Supple. Negative for carotid bruit, lymphadenopathy or thyromegaly. LUNGS: Clear to A and P. CARDIOVASCULAR: Regular rate and rhythm. Normal S1, S2. ABDOMEN: Soft. Bowel sounds positive. EXTREMITIES: Negative for cyanosis, clubbing or pedal edema. NEUROLOGIC: Mental status: The patient is alert and oriented x 3. Speech is fluent. There is no language dysfunction. Memory, judgment and abstracting thinking are normal. The patient denies hallucination or delusion. Cranial nerves are intact. No focal motor or sensory deficit. Deep tendon reflexes were symmetric and hypoactive with absent Achilles responses. Gait, the patient walks without assistance. CT of the chest today revealed compression fracture of T5, T6 of moderate severity, which is increased compared to a prior study and pneumonia more prominent on the left side, cholelithiasis and colonic diverticulosis. IMPRESSION: 1. Generalized weakness, probably due to underlying pneumonia. 2. Frequent falls resulted in a compression fracture of T5, T6. 3. Chronic lower back pain, probably due to underlying degenerative disk disease. 4. Multiple medical problems include coronary artery disease, orthostatic hypotension, diabetes mellitus, diverticulosis and cholelithiasis. RECOMMENDATIONS: 1. Continue with current management initiated by Dr. Damno. 2. PT/OT as tolerated. 3. We will arrange for neurological followup on outpatient basis and rule out lumbosacral radiculopathy versus peripheral neuropathy in the lower extremities. The patient is neurologically stable. BRADY/RASHEL/MARY DR: BRADY/jorge TID: [id number]
[2021-10-04 05:00] VITALS: BP 157/66
[2021-10-04] MEDS: DEXAMETHASONE SOD PHOS 4 MG/ML VIAL. IVP SCH ×3 (06:06→21:00)
[2021-10-04] MEDS: MIDODRINE 5 MG TABLET PO SCH ×3 (06:07→18:00)
[2021-10-04] MEDS: CALCIUM CARB/VIT D3 500/200 TABLET PO SCH ×2 (08:00→17:00)
[2021-10-04] MEDS: GABAPENTIN 300 MG CAPSULE. PO SCH ×3 (08:54→21:00)
[2021-10-04] MEDS: rOPINIRole 0.25 MG TABLET. PO SCH (08:54)
[2021-10-04] MEDS: ASPIRIN CHEWABLE 81 MG TABLET. PO SCH (08:54)
[2021-10-04] MEDS: LACTOBACILLUS RHAMNOSUS GG 1 CAPSULE. PO SCH ×2 (08:55→21:00)
[2021-10-04] MEDS: DOCUSATE SODIUM 100 MG CAPSULE PO SCH ×2 (08:55→21:00)
[2021-10-04] MEDS: LIDOCAINE 2% TOPICAL JELLY 30GM TUBE. TP SCH ×3 (08:56→21:00)
[2021-10-04 11:09] VITALS: BP 129/58
[2021-10-04] MEDS: guaiFENesin DM 200MG/20MG 10 ML SYRUP PO PRN (11:58)
[2021-10-04 13:17] LABS: CREATININE 1.6 mg/dL (0.7-1.3); GFR 41.2; POTASSIUM 4.5 mmol/L (3.5-5.1)
[2021-10-04] MEDS ORDERED: DEXTROSE 50% 25 GM / 50ML DISP.SYRIN. IV PRN (13:30)
[2021-10-04] MEDS ORDERED: IV 1/2 NORMAL SALINE 1,000 ML IV PRN (13:30)
[2021-10-04] MEDS ORDERED: INSULIN REGULAR 100 UNIT/ML 3ML VIAL. SQ ONE (13:30)
[2021-10-04] MEDS: IPRATRPIUM/ALBUTEROL 0.5/2.5MG 3 ML NEBU. NEB SCH ×2 (14:00→15:04)
[2021-10-04 16:09] VITALS: BP 131/51
[2021-10-04] MEDS: INSULIN LISPRO 300 UNITS/3 ML VIAL. SQ SCH (17:00)
[2021-10-04 19:56] VITALS: BP 177/65
--- NOTE | 2021-10-04 20:44 | PN ---
SUBJECTIVE: The patient complains of frequent dry cough. He denies chest pain, shortness of breath, palpitation, dysarthria or dysphagia. OBJECTIVE: GENERAL: Well-developed, well-nourished male, not in acute distress. VITAL SIGNS: Blood pressure 129/58. In lying position, blood pressure was 136/59 and in sitting position is 130/57. In standing position, blood pressure 113/51; therefore, there are some orthostatic changes from lying to standing. Respiratory rate is 16, pulse is 60 and irregular, oxygen saturation is 94% on room air and temperature is 98.1. HEENT: Normocephalic, atraumatic. Otherwise unremarkable. NECK: Supple. Negative for carotid bruit, lymphadenopathy or thyromegaly. LUNGS: Diminished breath sounds with mild crackles or confined to the left lower lobe. CARDIOVASCULAR: Regular rate and rhythm, normal S1, S2. There is no S3, S4 or murmur. ABDOMEN: Soft. Bowel sounds positive. EXTREMITIES: Negative for cyanosis, clubbing or pedal edema. NEUROLOGIC: Mental status: The patient is alert and oriented x 3. The speech is fluent. There is no language dysfunction. Cranial nerves are intact. No focal motor or sensory deficit. Motor examination revealed no focal muscle bulk wasting. The strength is 4/5 throughout. Sensory examination revealed a diminished pinprick and light touch senses in patchy distributions in the distal lower extremities. Deep tendon reflexes were symmetric with absent Achilles responses. Gait: The patient uses a walker for ambulation. IMPRESSION: 1. Pneumonia, more prominent on the left side left lower lobe. 2. Frequent falls, probably multifactorial. 3. Compression fracture of T5-T6 with lumbosacral degenerative disk disease. 4. Rule out peripheral neuropathy in the lower extremity. RECOMMENDATIONS: 1. Continue with current management initiated by Dr. Chavez. 2. Continue with current neurological recommendations and outpatient followup. BRADY/HERI DR: Genia TID: [id number]
[2021-10-04] MEDS ORDERED: INSULIN GLARGINE SYRINGE. SQ ONE (21:30)
[2021-10-04] MEDS: AZITHROMYCIN 500 MG in IV NORMAL SALINE 250ML 250 ML IV SCH (22:27)
[2021-10-04 23:26] VITALS: BP 146/67
--- NOTE | 2021-10-04 23:28 | PN ---
SUBJECTIVE: The patient is resting fairly comfortably, making fairly good progress. Still fairly weak. The patient's blood sugar had gone up to 300 and so he is being placed on some insulin and sliding scale probably because of the Decadron. His aldolase was also elevated at 1304, showing damage to those muscles in his legs was giving him such weakness and I think the steroids have helped him in that regard. Otherwise, continued to be monitored carefully. Blood sugar in the low 300s. He has had a history of blood sugar problems in the past, but obviously the steroids, which is helping his legs and we will put him on a sliding scale. OBJECTIVE: VITAL SIGNS: Blood pressure 130/50, respiratory rate 18, pulse 60, afebrile. LUNGS: Diminished, but clear. CARDIOVASCULAR: Stable. ABDOMEN: Soft, nontender. IMPRESSION: Therefore, pneumonia, community-acquired; weakness to the legs, myopathy, elevated blood sugars accentuated by steroids. IRINEO DR: Silvia TID: [id number]
[2021-10-05] MEDS: IPRATRPIUM/ALBUTEROL 0.5/2.5MG 3 ML NEBU. NEB SCH ×3 (04:51→19:07)
[2021-10-05] MEDS: DEXAMETHASONE SOD PHOS 4 MG/ML VIAL. IVP SCH ×2 (04:56→20:33)
[2021-10-05 06:22] VITALS: BP 157/52
[2021-10-05] MEDS: MIDODRINE 5 MG TABLET PO SCH ×3 (07:00→18:00)
[2021-10-05] MEDS: GABAPENTIN 300 MG CAPSULE. PO SCH ×3 (08:13→20:33)
[2021-10-05] MEDS: LACTOBACILLUS RHAMNOSUS GG 1 CAPSULE. PO SCH ×2 (08:14→20:33)
[2021-10-05] MEDS: ASPIRIN CHEWABLE 81 MG TABLET. PO SCH (08:14)
[2021-10-05] MEDS: DOCUSATE SODIUM 100 MG CAPSULE PO SCH ×2 (08:14→20:33)
[2021-10-05] MEDS: LIDOCAINE 2% TOPICAL JELLY 30GM TUBE. TP SCH ×3 (08:15→20:32)
[2021-10-05] MEDS: INSULIN LISPRO 300 UNITS/3 ML VIAL. SQ SCH ×3 (08:20→17:00)
[2021-10-05 09:23] LABS: ALBUMIN 2.7 g/dL (3.4-5.0); ALBUMIN/GLOBULIN RATIO 0.8 (1.0-1.7); CALCIUM 9.1 mg/dL (8.5-10.1); CREATININE 1.6 mg/dL (0.7-1.3); GFR 41.2; POTASSIUM 4.8 mmol/L (3.5-5.1); TOTAL BILIRUBIN 0.2 mg/dL (0.2-1.0); TOTAL PROTEIN 6.3 g/dL (6.4-8.2)
[2021-10-05 09:44] LABS: BASO % 0 % (0-3); EOS % 0 % (0-3); HEMATOCRIT 34.4 % (39.0-53.0); HEMOGLOBIN 11.4 g/dL (13.0-17.5); LYMPH # 0.9 x10^3/uL (1.0-4.8); LYMPH % 6 % (24-48); MEAN CORPUSCULAR HEMOGLOBIN 33 pg (25-35); MEAN CORPUSCULAR HGB CONC 33 g/dL (31-37); MEAN CORPUSCULAR VOLUME 99 fL (79-100); MONO # 0.3 x10^3/uL (0.0-1.1); MONO % 2 % (0-9); NEUT # 13.3 x10^3uL (1.8-7.7); NEUT % 92 % (31-73); PLATELET COUNT 279 x10^3/uL (140-400); RED BLOOD COUNT 3.47 x10^6/uL (4.30-5.70); RED CELL DISTRIBUTION WIDTH 13.6 % (11.5-14.5); WHITE BLOOD COUNT 14.4 x10^3/uL (4.0-11.0)
[2021-10-05 10:36] VITALS: BP 121/54
[2021-10-05] MEDS: CALCIUM CARB/VIT D3 500/200 TABLET PO SCH ×2 (11:59→17:07)
[2021-10-05] MEDS: buPROPion XL 150 MG TAB.ER.24H PO SCH (11:59)
[2021-10-05] MEDS: rOPINIRole 0.25 MG TABLET. PO SCH (11:59)
--- NOTE | 2021-10-05 12:29 | RAD ---
AP and Lateral Views of the Chest 10/05/2021 11:10 AM Indication: Reason: pneumonia Comparison: Trace radiograph May 22, 2021 Findings: No pneumothorax or effusion is seen. Basilar predominant reticular changes noted. Heart siz e is top normal. Aortic calcification noted. No acute osseous changes are seen. IMPRESSION: Basilar predominant reticular changes. Similar findings noted on comparison study. The ap pearance favors fibrotic [employer] infiltrate. No other acute cardiopulmonary process is identified . Electronically signed by: Fredy Han MD (10/05/2021 12:27 PM) [id number]
[2021-10-05 15:30] VITALS: BP 122/58
[2021-10-05 19:00] VITALS: BP 146/57
[2021-10-05] MEDS: guaiFENesin DM 200MG/20MG 10 ML SYRUP PO PRN (20:33)
[2021-10-06] MEDS: AZITHROMYCIN 500 MG in IV NORMAL SALINE 250ML 250 ML IV SCH (00:09)
--- NOTE | 2021-10-06 04:31 | PN ---
SUBJECTIVE: The patient continues to have a dry cough. He denies chest pain or shortness of breath. OBJECTIVE: GENERAL: Well-developed, well-nourished man, not in acute distress. VITAL SIGNS: Blood pressure 121/54, respiratory rate 20, pulse is 60 and regular, oxygen 93% on room air and temperature 98.4. HEENT: Normocephalic, atraumatic, otherwise unremarkable. NECK: Supple. Negative for carotid bruit, lymphadenopathy or thyromegaly. LUNGS: Clear to A and P with diminished breath sounds. No crackles or wheezing. CARDIOVASCULAR: Regular rate and rhythm. Normal S1, S2. There is no S3, S4, murmur. ABDOMEN: Soft. Bowel sounds positive. EXTREMITIES: Negative for cyanosis, clubbing or edema. NEUROLOGIC: Normal mental status and intact cranial nerves. There is no focal motor or sensory deficit. The strength is 4/5 in the lower extremities. Sensory examination revealed diminished pinprick and light touch senses in patchy distributions in distal lower extremities. Deep tendon reflexes were asymmetric and hypoactive with absent Achilles responses. Gait: The patient uses a walker for ambulation. He had one fall when he tried to reach something on the floor, but he fell on his buttocks. He did not have any head injuries or loss of consciousness LABORATORY DATA: CBC revealed blood cells of 14.4 thousand with neutrophils of 92%, hemoglobin 11.4, hematocrit 34.4, platelet count 279,000. Chemistry: Sodium of 136, potassium 4.8, chloride 100, CO2 of 28, BUN 40, creatinine 1.6, glucose 280. Liver enzymes are elevated. DIAGNOSTICS: Repeat chest x-ray today revealed no significant changes, but fibrotic changes with favor of infiltrate. IMPRESSION: 1. Pneumonia with new fibrotic changes. 2. Frequent falls, likely multifactorial. 3. Existing compression fracture of the T5-T6 with lumbosacral degenerative disk disease. 4. Rule out lumbosacral radiculopathy versus myopathy. RECOMMENDATIONS: 1. Continue with current management initiated by Dr. Damon. 2. PT, OT as tolerated. 3. Follow up previous neurological recommendations and outpatient followup when the patient is discharged home. KAY/KALYN DR: Genia TID: [id number]
[2021-10-06] MEDS: IPRATRPIUM/ALBUTEROL 0.5/2.5MG 3 ML NEBU. NEB SCH (04:37)
--- NOTE | 2021-10-06 04:37 | PN ---
SUBJECTIVE: An 86-year-old gentleman with pneumonia, exacerbation of chronic obstructive pulmonary disease, generalized weakness and myopathy secondary to his pneumonia. The patient says he is feeling a little better. White count has gone up a little bit secondary to steroids. The patient has been able to move around a little bit better than he has. OBJECTIVE: VITAL SIGNS: Blood pressure 140/60, respiration 18, pulse 67, afebrile. GENERAL: The patient is alert and oriented. LUNGS: Diminished primarily in the bases with rhonchi noted. CARDIOVASCULAR: Regular sinus rhythm. S1, S2. ABDOMEN: Soft, nontender. NEUROLOGIC: The patient continues to make good progress in that regard. Legs are a little bit stronger, able to walk around with walker, receiving PT, OT and will continue to do so. The patient's blood sugars are being brought under control. LABORATORY DATA: The patient's labs show a blood sugar in the low 200s by and large, moderate protein malnutrition, chronic renal failure; otherwise, the patient continues to make good progress overall and will continue to be monitored carefully. IMPRESSION: Pneumonia, community acquired; weakness to the legs secondary to myopathy; elevated blood sugars accentuated by his steroid use. FALGUNI/FRANCY/MAK DR: FALGUNI/jorge TID: [id number]
[2021-10-06 05:00] VITALS: BP 129/56
[2021-10-06 07:00] VITALS: BP 129/56
[2021-10-06] MEDS: MIDODRINE 5 MG TABLET PO SCH (07:00)
[2021-10-06 07:14] LABS: BASO % 0 % (0-3); EOS % 0 % (0-3); HEMATOCRIT 30.7 % (39.0-53.0); HEMOGLOBIN 10.5 g/dL (13.0-17.5); LYMPH # 1.6 x10^3/uL (1.0-4.8); LYMPH % 15 % (24-48); MEAN CORPUSCULAR HEMOGLOBIN 34 pg (25-35); MEAN CORPUSCULAR HGB CONC 34 g/dL (31-37); MEAN CORPUSCULAR VOLUME 99 fL (79-100); MONO # 0.6 x10^3/uL (0.0-1.1); MONO % 5 % (0-9); NEUT # 8.4 x10^3uL (1.8-7.7); NEUT % 80 % (31-73); PLATELET COUNT 260 x10^3/uL (140-400); RED BLOOD COUNT 3.11 x10^6/uL (4.30-5.70); RED CELL DISTRIBUTION WIDTH 13.6 % (11.5-14.5); WHITE BLOOD COUNT 10.6 x10^3/uL (4.0-11.0)
[2021-10-06 07:20] LABS: ALBUMIN 2.5 g/dL (3.4-5.0); ALBUMIN/GLOBULIN RATIO 0.8 (1.0-1.7); CALCIUM 8.7 mg/dL (8.5-10.1); CREATININE 1.5 mg/dL (0.7-1.3); GFR 44.4; POTASSIUM 4.7 mmol/L (3.5-5.1); TOTAL BILIRUBIN 0.2 mg/dL (0.2-1.0); TOTAL PROTEIN 5.6 g/dL (6.4-8.2)
[2021-10-06] MEDS: DEXAMETHASONE SOD PHOS 4 MG/ML VIAL. IVP SCH (08:22)
[2021-10-06] MEDS: rOPINIRole 0.25 MG TABLET. PO SCH (08:22)
[2021-10-06] MEDS: GABAPENTIN 300 MG CAPSULE. PO SCH (08:22)
[2021-10-06] MEDS: guaiFENesin DM 200MG/20MG 10 ML SYRUP PO PRN (08:22)
[2021-10-06] MEDS: LACTOBACILLUS RHAMNOSUS GG 1 CAPSULE. PO SCH (08:23)
[2021-10-06] MEDS: ASPIRIN CHEWABLE 81 MG TABLET. PO SCH (08:23)
[2021-10-06] MEDS: CALCIUM CARB/VIT D3 500/200 TABLET PO SCH (08:23)
[2021-10-06] MEDS: buPROPion XL 150 MG TAB.ER.24H PO SCH (08:23)
[2021-10-06] MEDS: DOCUSATE SODIUM 100 MG CAPSULE PO SCH (08:24)
[2021-10-06] MEDS: LIDOCAINE 2% TOPICAL JELLY 30GM TUBE. TP SCH (08:25)
[2021-10-06] MEDS: INSULIN LISPRO 300 UNITS/3 ML VIAL. SQ SCH (08:26)
[2021-10-06] MEDS ORDERED: MAGNESIUM CHLORIDE ER 64 MG TABLET.ER PO SCH (09:00)
[2021-10-06] MEDS ORDERED: GUAI5SYR PO (09:29)
[2021-10-06] MEDS ORDERED: MAGN70TA2 PO (09:29)
[2021-10-06] MEDS ORDERED: IPRA3AMP29 NEB (09:29)
[2021-10-06] MEDS ORDERED: BUPR150T21 PO (09:29)
[2021-10-06] MEDS ORDERED: CALC1TAB54 PO (09:29)
[2021-10-06] MEDS ORDERED: PRED5TAB PO (09:29)
--- NOTE | 2021-10-06 17:08 | DISCH ---
HOME HEALTH DISCHARGE/MEDS DISCHARGE INFORMATION: Discharge Date: Oct 06, 2021 Final Diagnosis: Problems Medical Problems: (1) Pneumonia Status: Acute (2) Multiple falls Status: Acute (3) COPD exacerbation Condition on Discharge: Stable CODE STATUS: Code Status: Full HOME HEALTH: Face to Face: I certify this patient is under my care and that I, or a nurse practitioner or physician's business services assistant working with me, had a face to face encounter that meets the physician face to face encounter requirements with this patient on October 06, 2021. Medical Condition(s): COPD, Falls, Pneumonia Shelter For: Assess Cardiopulm Status, Assess & Educate Safety, Assess/Skilled Observatio, Medication Management Physical Therapy For: Evalulation/Treatment Homebound Status Met By: Unsteady balance w/ amb, POST DISCHARGE ORDERS: Activity Instructions for Disc: Activity as tolerated Weight Bearing Status after Di: No restrictions DIET AFTER DISCHARGE: Cardiac CERTIFICATION STATEMENT: Certification Statement: Based on the above finding, I certify that this patient is confined to the home and needs intermittent halfway care, physical therapy and/or speech therapy, or continues to need occupational therapy.~ This patient is under my care, and I have initiated the establishment of the plan of care.~ This patient will be followed by myself or a community physician who will periodically review the plan of care. DISCHARGE MEDICATIONS: Home Meds Active Scripts Prednisone (PREDNISONE) 5 Mg Tablet, 5 MG PO DAILY for sob for 30 Days, #60 TAB Prov:CHICA HINKLE MD 10/06/21 Guaifenesin/Dextromethorphan (GUAIFENESIN DM SYRUP) 5 Ml Syrup, 10 ML PO PRN Q6HRS PRN for COUGH for 30 Days, #180 MISC Prov:CHICA HINKLE MD 10/06/21 Magnesium Chloride (Magnesium Chloride) 70 Mg Tablet.dr, 64 MG PO DAILY for myopathy for 30 Days, #28 TAB 6 Refills Prov:CHICA HINKLE MD 10/06/21 Calcium Carbonate/Vitamin D3 ([employer] 500+D TABLET) 1 Each Tablet, 1 TAB PO BIDWMEALS for osteopenia for 30 Days, #60 TAB 6 Refills Prov:CHICA HINKLE MD 10/06/21 Bupropion Hcl (BUPROPION XL) 150 Mg Tab.er.24h, 150 MG PO DAILY for neuropathy for 30 Days, #30 TAB.SR 6 Refills Prov:CHICA HINKLE MD 10/06/21 Ipratropium/Albuterol Sulfate (DUONEB 0.5-3(2.5) MG/3 ML) 3 Ml Ampul.neb, 3 ML NEB TID for pulmonary fibrosis for 30 Days, #90 EACH Prov:CHICA HINKLE MD 10/06/21 Calcium Carbonate (CALCIUM CARBONATE) 200 Mg Tab.chew, 500 MG PO PRN AFTMEALHC PRN for INDIGESTION for 30 Days, #30 TAB.CHEW Prov:CHICA HINKLE MD 05/25/21 Amlodipine Besylate (AMLODIPINE BESYLATE) 5 Mg Tablet, 5 MG PO DAILY for htn for 30 Days, #30 TAB Prov:CHICA HINKLE MD 05/25/21 Midodrine Hcl (MIDODRINE HCL) 5 Mg Tablet, 5 MG PO [id number] for orthrostatic hypotension for 30 Days, #90 TAB 1 Refill Prov:CHICA HINKLE MD 05/25/21 Docusate Sodium (COLACE) 100 Mg Capsule, 1 CAP PO BID for CONSTIPATION for 7 Days, #14 CAP 0 Refills Prov:ANGIE ARREOLA DO 05/17/21 Neomycn/Baci Zn/Pmyx Bs/Pramox (Triple Antibioti-Pain Rlf Oint) 28 Gm Oint...g., 28 GM TP TID PRN for PAIN, #1 MISC Prov:ANGIE ARREOLA DO 05/16/21 Ropinirole Hcl (ROPINIROLE HCL) 0.25 Mg Tablet, 0.25 MG PO DAILY for rls for 30 Days, #30 TAB Prov:CHICA HINKLE MD 05/09/21 Reported Medications Triamcinolone Acetonide (TRIAMCINOLONE ACETONIDE 0.025% CREAM) 15 Gm Cream..g., 1 CASTRO TP TID PRN PRN for ITCHING, #30 GM 05/22/21 Glyburide (GLYBURIDE) 5 Mg Tablet, 1 TAB PO DAILY for ., #60 TAB 5 Refills LAST DOSE GIVEN: DATE:Today TIME:AM NEXT DOSE DUE: DATE:Tomorrow TIME:AM 05/22/21 Aspirin (Children's Aspirin) 81 Mg Tab.chew, 1 TAB PO DAILY for . for 30 Days, #30 TAB 0 Refills LAST DOSE GIVEN: DATE:Today TIME:AM NEXT DOSE DUE: DATE:Tomorrow TIME:AM 05/22/21 Gabapentin (GABAPENTIN ) 300 Mg Capsule, 300 MG PO TID for NEUROGENIC PAIN, CAP LAST DOSE GIVEN: DATE:Today TIME: afternoon NEXT DOSE DUE: DATE: TIME:bedtime 05/07/21 CHICA HINKLE MD Oct 06, 2021 17:08
[2021-10-07] MEDS ORDERED: predniSONE 5 MG TABLET PO SCH (09:00)
== END 2021-10-06 10:40 | disposition home or self-care (01) | DRG 178 ==
LOC: ER 20:11 → ER HOLD 22:00 → 1 SOUTH 10-01 16:52
PROVIDERS: ADMIT Family Medicine; ATTEND Family Medicine
DX: J15.6 Pneumonia due to other Gram-negative bacteria (principal); J44.0 Chronic obstructive pulmonary disease with (acute) lower respiratory infection; S22.059A Unspecified fracture of T5-T6 vertebra, initial encounter for closed fracture; E44.0 Moderate protein-calorie malnutrition; J15.9 Unspecified bacterial pneumonia; I95.1 Orthostatic hypotension; E11.65 Type 2 diabetes mellitus with hyperglycemia; G20 Parkinson's disease; G89.29 Other chronic pain; I10 Essential (primary) hypertension; I25.10 Atherosclerotic heart disease of native coronary artery without angina pectoris; K57.90 Diverticulosis of intestine, part unspecified, without perforation or abscess without bleeding; K80.20 Calculus of gallbladder without cholecystitis without obstruction; M51.36 Other intervertebral disc degeneration, lumbar region; M51.37 Other intervertebral disc degeneration, lumbosacral region; R29.6 Repeated falls; W18.30XA Fall on same level, unspecified, initial encounter; Y92.009 Unspecified place in unspecified non-institutional (private) residence as the place of occurrence of the external cause; Z20.822 Contact with and (suspected) exposure to COVID-19; Z82.0 Family history of epilepsy and other diseases of the nervous system; Z86.19 Personal history of other infectious and parasitic diseases; Z90.49 Acquired absence of other specified parts of digestive tract; Z91.81 History of falling; G72.9 Myopathy, unspecified; Z68.22 Body mass index [BMI] 22.0-22.9, adult
CPT/HCPCS: 36415; 70450; 71045; 71046; 71250; 72125; 72131; 73090; 73130; 73521; 80048; 80053; 81001; 82085; 82550; 82607; 82947; 85025; 85651; 86140; 87426; 93005; 94640; 96360; 96361; J0456; J0696; J1100; J1815; J7050; U0003; 97110; 97530; 97535; 99285-25